=== PATIENT | female | born 1965 | race Caucasian/White ===

== ENCOUNTER → 2016-11-27 | Outpatient (CLI) | payer BC ==
[2016-11-27 15:36] LABS: CHLORIDE,CL 115 mmol/L (98-110); SODIUM,NA 146 mmol/L (136-146)
== END | disposition home or self-care (01) ==
LOC: MW.CHIM 15:01
PROVIDERS: ATTEND Internal Medicine
DX: I10 Essential (primary) hypertension (principal)
CPT/HCPCS: 36415; 80053; 85025

== ENCOUNTER 2017-02-16 06:37 | Day surgery (SDC) | payer BC ==
[~2017-02-16 06:37] MED LIST: Lactated Ringers 1,000 ML IV SCH
[2017-02-16] MEDS ORDERED: Propofol 200 MG/20 ML SDV ONE (07:14)
[2017-02-16] MEDS ORDERED: Midazolam 1 MG/ML 2 ML SDV ONE (07:14)
--- NOTE | 2017-02-16 07:15 | PCM.PREANE ---
Preanesthetic Assessment - Anesthesia/Transfusion/Family Hx Anesthesia History: Prior Anesthesia Without Reaction Family History of Anesthesia Reaction: No Transfusion History: Prior Transfusion Without Reaction Intubation History: Unknown - Review of Systems General: No Symptoms Pulmonary: No Symptoms Cardiovascular: No Symptoms Gastrointestinal: No Symptoms, Other (cancer screening) Neurological: No Symptoms Other: Reports: None - Physical Assessment O2 Sat by Pulse Oximetry: 100 Respiratory Rate: 16 Vital Signs: Last Vital Signs Temp 36.2 C 02/16/17 06:45 Pulse 56 L 02/16/17 06:45 Resp 16 02/16/17 06:45 BP 139/84 02/16/17 06:45 Pulse Ox 100 02/16/17 06:45 Height: 1.63 m Weight: 49.895 kg ASA Class: 2 Mental Status: Alert & Oriented x3 Airway Class: Mallampati = 1 Dentition: Reports: Normal Dentition Thyro-Mental Finger Breadths: 3 Mouth Opening Finger Breadths: 3 ROM/Head Extension: Full Lungs: Clear to Auscultation, Normal Respiratory Effort Cardiovascular: Regular Rate, Regular Rhythm - Allergies Allergies/Adverse Reactions: Allergies Allergy/AdvReac Type Severity Reaction Status Date / Time No Known Allergies Allergy Verified 01/12/16 14:16 - Blood Blood Available: No - Anesthesia Plan Pre-Op Medication Ordered: None - Acknowledgements Anesthesia Type Planned: MAC Pt an Appropriate Candidate for the Planned Anesthesia: Yes Alternatives and Risks of Anesthesia Discussed w Pt/Guardian: Yes Pt/Guardian Understands and Agrees with Anesthesia Plan: Yes PreAnesthesia Questionnaire HEENT History: Reports: None Cardiovascular History: Reports: Hypertension Respiratory History: Reports: None Gastrointestinal History: Reports: None Genitourinary History: Reports: None COMPUTER OPERATIONS SPECIALIST History: Reports: None Musculoskeletal History: Reports: None Neurological History: Reports: None Psychiatric History: Reports: None Endocrine/Metabolic History: Reports: None Hematologic History: Reports: Blood Transfusion(s) Immunologic History: Reports: None Oncologic (Cancer) History: Reports: None Dermatologic History: Reports: None - Past Surgical History Head Surgeries/Procedures: Reports: None HEENT Surgical History: Reports: None Cardiovascular Surgical History: Reports: None Respiratory Surgical History: Reports: None GI Surgical History: Reports: Bariatric Procedure (x2 (in [place])), Hernia Repair/Other Other GI Surgeries/Procedures: 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 Female Surgical History: Reports: Hysterectomy Endocrine Surgical History: Reports: None Neurological Surgical History: Reports: None Musculoskeletal Surgical History: Reports: None Oncologic Surgical History: Reports: None - SUBSTANCE USE Smoking Status *Q: Never Smoker Recreational Drug Use History: No - HOME MEDS Home Medications: Home Meds Valsartan 320 mg PO DAILY 02/15/17 [History] amLODIPine [Norvasc] 5 mg PO DAILY 02/15/17 [History] cloNIDine HCl [Catapres] 0.1 mg PO BID 02/15/17 [History] - CURRENT (IN HOUSE) MEDS Current Meds: Current Medications Lactated Ringer's (Ringers, Lactated) 1,000 mls @ 125 mls/hr IV ASDIRECTED [facility] Last Admin: 02/16/17 06:51 Dose: 125 mls/hr
[2017-02-16] MEDS ORDERED: Lactated Ringers 1,000 ML IV SCH (08:30)
--- NOTE | 2017-02-16 08:30 | PCM.OPNOTE ---
- General Post-Op/Procedure Note Date of Surgery/Procedure: 02/16/17 Operative Procedure(s): Colonoscopy with snare ascending colon polypectomy and snare descending colon polypectomy Pre Op Diagnosis: Desire for colorectal cancer screening Post-Op Diagnosis: Ascending and descending colon polyps. Pancolonic diverticulosis. Anesthesia Technique: MAC (ASA II) Primary Surgeon: Amado Lopez Condition: Good Free Text/Narrative:: Dictation [id number]. CPT CODE 80401
--- NOTE | 2017-02-16 08:44 | PCM.POSTAN ---
POST ANESTHESIA ASSESSMENT - MENTAL STATUS Mental Status: Alert, Oriented - RESPIRATORY Respiratory Status: respiratory rate WNL, Airway Patent, O2 Saturation Stable - CARDIOVASCULAR CV Status: Pulse Rate WNL, Blood Pressure Stable - GASTROINTESTINAL GI Status: No Symptoms - PAIN Pain Score: 0 - POST OP HYDRATION Hydration Status: Adequate & Stable (no anesthesia problems)
[2017-02-16 09:00] VITALS: BP 112/64
--- NOTE | 2017-02-16 10:00 | OR ---
SURGEON: Amado Lopez M.D. DATE OF PROCEDURE: 02/16/2017 OPERATION PERFORMED: Colonoscopy with snare ascending colon and snare descending colon, polypectomy. ANESTHESIA: MAC. ASA CLASSIFICATION: II. PREOPERATIVE DIAGNOSIS: Desire for colorectal cancer screening. POSTOPERATIVE DIAGNOSES: 1. Ascending and descending colon polyps. 2. Pancolonic diverticulosis. DESCRIPTION OF PROCEDURE: The patient was taken to the endoscopy room and positioned on the endoscopy table in the left lateral decubitus position. Time-out was called for appropriate identification of the patient and procedure. Monitored anesthesia care was provided. The colonoscope was inserted into the rectum and advanced without difficulty to the cecum. The colonoscope was retroflexed in the cecum to visualize the ascending colon from below, then straightened and slowly withdrawn. One polyp was encountered in the ascending colon and this was removed with the snare electrocautery and recovered. The remainder of the ascending colon, hepatic flexure, transverse colon, splenic flexure, and proximal descending colon showed no tumors, polyps, or angiodysplastic changes. Multiple small scattered diverticula were noted throughout the entire length of the colon. A second polyp was encountered in the descending colon and also removed with a snare electrocautery and recovered. Both polypectomy sites were dry. The most significant area of diverticular involvement is in the sigmoid colon. Once the colonoscope was withdrawn to the rectum, it was retroflexed to visualize the anal orifice from above. No other tumors or polyps were identified and there were no acute hemorrhoidal changes. The colonoscope was then straightened, the rectum aspirated, and the colonoscope removed. The patient tolerated the procedure well and was taken to recovery room in stable condition. GAYATRI SALAS /[id number]
== END 2017-02-16 09:04 | disposition home or self-care (01) ==
LOC: MW.SDS 06:37
PROVIDERS: ATTEND Surgery
PROC: 0DBK8ZZ Excision of Ascending Colon, Via Natural or Artificial Opening Endoscopic (ICD-10-PCS; principal; 2017-02-16)
PROC: 0DBM8ZZ Excision of Descending Colon, Via Natural or Artificial Opening Endoscopic (ICD-10-PCS; 2017-02-16)
DX: Z12.11 Encounter for screening for malignant neoplasm of colon (principal); D12.2 Benign neoplasm of ascending colon; D12.4 Benign neoplasm of descending colon; K57.30 Diverticulosis of large intestine without perforation or abscess without bleeding; I10 Essential (primary) hypertension; Z79.899 Other long term (current) drug therapy; Z90.710 Acquired absence of both cervix and uterus; Z98.84 Bariatric surgery status; Z98.890 Other specified postprocedural states; Z77.22 Contact with and (suspected) exposure to environmental tobacco smoke (acute) (chronic)
CPT/HCPCS: 45385; J2250; J7120; 00810; 88305; J2704

== ENCOUNTER 2017-04-29 12:25 | Emergency (ER) | payer BC ==
[2017-04-29 12:37] VITALS: BP 128/82
--- NOTE | 2017-04-29 12:46 | EDM.PDOC ---
ED HPI GENERAL MEDICAL PROBLEM - General Chief Complaint: Bite:Animal, Insect Stated Complaint: cat scratch fever Time Seen by Provider: 04/29/17 12:42 Source of Information: Reports: Patient History Limitations: Reports: No Limitations - History of Present Illness INITIAL COMMENTS - FREE TEXT/NARRATIVE: HISTORY AND PHYSICAL: []51-year-old female presents with cellulitis to her left leg History of Present Illness: []Patient was scratched by her cat and has no cellulitis to the left lower leg. SHe is feeling some chills Review of Systems: As per history of present illness and below otherwise all systems reviewed and negative. Past medical history: As per history of present illness and as reviewed below otherwise noncontributory. Surgical history: As per history of present illness and as reviewed below otherwise noncontributory. Social history: No reported history of drug or alcohol abuse. Family history: As per history of present illness and as reviewed below otherwise noncontributory. Physical exam: Alert and oriented female who is nontoxic in appearance. Answers questions in full with full sentences no shortness of breath. It is warm and dry intact HEENT: Atraumatic, normocehpalic, pupils reactive, negative for conjunctival pallor or scleral icterus, mucous membranes moist, throat clear, neck supple, nontender, trachea midline. Lungs: Clear to auscultation, breath sounds equal bilaterally, chest non tender. Heart: S1S2, regular, negative for clicks, rubs, or JVD. Abdomen: Soft, nondistended, nontender. Negative for masses or hepatossplenmegaly. Negative for costovertebral tenderness. Pelvis: Stable nontender. Genitourinary: Deferred. Rectal: Deferred Extremities: Left lower leg with a scratch mid calf. It is erythematous, but there is a well-demarcated line just below her knee to the top of her foot with erythema, mild heat radiating, negative for cords or calf pain. Neurovascular unremarkable. Neuro: Awake, alert, oriented. Cranial nerves II through XII unremarkable. Cerebellum unremarkable. Motor and sensory unremarkable throughout. Exam nonfocal. Diagnostics: [] Therapeutics: [] Impression: [Acute cellulitis] Plan: [Discharged to home [facility] for augmentin Follow-up with your primary care provider] Definitive disposition and diagnosis as appropriate pending reevaluation and review of above. Left Lower Leg Pain Score (Numeric/FACES): 7 - Related Data Allergies Allergy/AdvReac Type Severity Reaction Status Date / Time No Known Allergies Allergy Verified 04/29/17 12:35 Home Meds: Home Meds Valsartan 320 mg PO DAILY 02/15/17 [History] amLODIPine [Norvasc] 5 mg PO DAILY 02/15/17 [History] cloNIDine HCl [Catapres] 0.1 mg PO BID 02/15/17 [History] Past Medical History HEENT History: Reports: None Cardiovascular History: Reports: Hypertension Respiratory History: Reports: None Gastrointestinal History: Reports: None Genitourinary History: Reports: None CUSTOMER SERVICE ASSOCIATE History: Reports: None Musculoskeletal History: Reports: None Neurological History: Reports: None Psychiatric History: Reports: None Endocrine/Metabolic History: Reports: None Hematologic History: Reports: Blood Transfusion(s) Immunologic History: Reports: None Oncologic (Cancer) History: Reports: None Dermatologic History: Reports: None - Past Surgical History Head Surgeries/Procedures: Reports: None HEENT Surgical History: Reports: None Cardiovascular Surgical History: Reports: None Respiratory Surgical History: Reports: None GI Surgical History: Reports: Bariatric Procedure, Hernia Repair/Other Other GI Surgeries/Procedures: 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 Female Surgical History: Reports: Hysterectomy Endocrine Surgical History: Reports: None Neurological Surgical History: Reports: None Musculoskeletal Surgical History: Reports: None Oncologic Surgical History: Reports: None Social & Family History - Family History Family Medical History: Noncontributory - Tobacco Use Smoking Status *Q: Never Smoker - Caffeine Use Caffeine Use: Reports: None - Recreational Drug Use Recreational Drug Use: No Drug Use in Last 12 Months: No ED ROS GENERAL - Review of Systems Review Of Systems: ROS reveals no pertinent complaints other than HPI. ED EXAM, ANIMAL BITE - Physical Exam Exam: See Below Course - Vital Signs Last Recorded V/S: Last Vital Signs Temp 36.9 C 04/29/17 12:32 Pulse 114 H 04/29/17 12:32 Resp 18 04/29/17 12:32 BP 128/82 04/29/17 12:32 Pulse Ox 97 04/29/17 12:32 Departure - Departure Time of Disposition: 12:44 Disposition: Home, Self-Care 01 Condition: Good Clinical Impression: Cellulitis Qualifiers: Site of cellulitis: extremity Site of cellulitis of extremity: lower extremity Laterality: left Qualified Code(s): L03.116 - Cellulitis of left lower limb - Discharge Information Referrals: Cali Patel MD [Primary Care Provider] - Additional Instructions: The following information is given to patients seen in the emergency department who are being discharged to home. This information is to outline your options for follow-up care. We provide all patients seen in our emergency department with a follow-up referral. The need for follow-up, as well as the timing and circumstances, are variable depending upon the specifics of your emergency department visit. If you don't have a primary care physician on staff, we will provide you with a referral. We always advise you to contact your personal physician following an emergency department visit to inform them of the circumstance of the visit and for follow-up with them and/or the need for any referrals to a consulting specialist. The emergency department will also refer you to a specialist when appropriate. This referral assures that you have the opportunity for followup care with a specialist. All of these measure are taken in an effort to provide you with optimal care, which includes your followup. Under all circumstances we always encourage you to contact your private physician who remains a resource for coordinating your care. When calling for followup care, please make the office aware that this follow-up is from your recent emergency room visit. If for any reason you are refused follow-up, please contact the [facility] emergency department at and asked to speak to the emergency department charge nurse. [facility] for antibiotic Tylenol alternating with Motrin every 3 hours for discomfort Follow-up with your primary care provider this week
== END 2017-04-29 13:20 | disposition home or self-care (01) ==
LOC: MW.ED 12:25
DX: L03.116 Cellulitis of left lower limb (principal); Z79.899 Other long term (current) drug therapy
CPT/HCPCS: 99282

== ENCOUNTER 2019-07-21 15:16 | Inpatient (IN) | payer BC ==
--- NOTE | 2019-07-21 16:04 | EDM.PDOC ---
ED HPI GENERAL MEDICAL PROBLEM - General Chief Complaint: Genitourinary Problem Stated Complaint: UTI Time Seen by Provider: 07/21/19 15:17 - History of Present Illness INITIAL COMMENTS - FREE TEXT/NARRATIVE: HPI 53-year-old female presents with dysuria and urinary frequency, denies flank pain, fevers, chills, nausea, vomiting, continues pass flatus and stool at baseline. No history of ureterolithiasis. ROS with no recent constitutional symptoms. Exam HR 96, RR 16, BP 157/78, T 36.7C, SaO2 98% on room air. Gen: Pleasant, non-toxic appearing, resting comfortably HEENT: NC, AT, PEERL, EOMI. Resp: Clear to auscultation bilaterally. Unlabored respirations with a normal work of breathing. Card: Regular rate and rhythm. Extremities warm and well perfused. GI: nontender to palpation throughout all quadrants, no rebound, guarding. : no CVA tenderness percussion bilaterally, no suprapubic tenderness to palpation. MSK: No visible deformities, strength and tone without visually appreciable deficit. Neuro: alert and oriented 3, no facial asymmetry, vision and hearing WNL. Heme/Lymph: Deferred Skin: Normal color with no visible lesions (other than noted above). Psych: Mood and affect appropriate. Labs: UA - trace occult blood, negative nitrate, small leukocyte esterase, rare bacteria, occasional epithelial cells, negative hCG. MDM Previous chart, nursing note, and vitals reviewed. A: 53-year-old female presents with dysuria and urinary frequency, denies flank pain, fevers, chills, nausea, vomiting, continues pass flatus and stool at baseline. DDx & Evaluation: UA and history consistent with UTI, no features suggestive of ureterolithiasis, pyelonephritis, or complicated UTI. Keflex prescribed. Impression: UTI. Urination Pain Score (Numeric/FACES): 3 - Related Data Allergies Allergy/AdvReac Type Severity Reaction Status Date / Time No Known Allergies Allergy Verified 07/21/19 15:22 Home Meds: Home Meds Valsartan 320 mg PO DAILY 02/15/17 [History] amLODIPine [Norvasc] 5 mg PO DAILY 02/15/17 [History] cloNIDine HCl [Catapres] 0.1 mg PO BID 02/15/17 [History] cephALEXin [Keflex] 500 mg PO BID #20 cap 07/21/19 [Rx] Past Medical History HEENT History: Reports: None Cardiovascular History: Reports: Hypertension Respiratory History: Reports: None Gastrointestinal History: Reports: None Genitourinary History: Reports: None PROCEDURES NURSE History: Reports: None Musculoskeletal History: Reports: None Neurological History: Reports: None Psychiatric History: Reports: None Endocrine/Metabolic History: Reports: None Hematologic History: Reports: Blood Transfusion(s) Immunologic History: Reports: None Oncologic (Cancer) History: Reports: None Dermatologic History: Reports: None - Infectious Disease History Infectious Disease History: Reports: Chicken Pox - Past Surgical History Head Surgeries/Procedures: Reports: None HEENT Surgical History: Reports: None Cardiovascular Surgical History: Reports: None Respiratory Surgical History: Reports: None GI Surgical History: Reports: Bariatric Procedure, Hernia Repair/Other Other GI Surgeries/Procedures: 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 Female Surgical History: Reports: Hysterectomy Endocrine Surgical History: Reports: None Neurological Surgical History: Reports: None Musculoskeletal Surgical History: Reports: None Oncologic Surgical History: Reports: None Social & Family History - Family History Family Medical History: Noncontributory - Tobacco Use Smoking Status *Q: Never Smoker Second Hand Smoke Exposure: No - Caffeine Use Caffeine Use: Reports: Coffee - Recreational Drug Use Recreational Drug Use: No ED ROS GENERAL - Review of Systems Review Of Systems: See Below ED EXAM, GENERAL - Physical Exam Exam: See Below Course - Vital Signs Last Recorded V/S: Last Vital Signs Temp 36.7 C 07/21/19 15:22 Pulse 96 07/21/19 15:22 Resp 16 07/21/19 15:22 BP 157/78 H 07/21/19 15:22 Pulse Ox 98 07/21/19 15:22 - Orders/Labs/Meds Orders: Active Orders 24 hr Category Date Time Status CULTURE URINE [RM] Stat Lab 07/21/19 15:26 Received Labs: Laboratory Tests 07/21/19 07/21/19 Range/Units 15:26 15:26 Urine Color YELLOW Urine Appearance SLT CLOUDY Urine pH 6.0 (5.0-8.0) Ur Specific [place] 1.020 (1.001-1.035) Urine Protein TRACE H (NEGATIVE) mg/dL Urine Glucose (UA) NEGATIVE (NEGATIVE) mg/dL Urine Ketones NEGATIVE (NEGATIVE) mg/dL Urine Occult Blood TRACE-INTACT H (NEGATIVE) Urine Nitrite NEGATIVE (NEGATIVE) Urine Bilirubin NEGATIVE (NEGATIVE) Urine Urobilinogen 0.2 (<2.0) EU/dL Ur Leukocyte Esterase SMALL H (NEGATIVE) Urine RBC 1-2 (0-2/HPF) Urine WBC 15-20 (0-5/HPF) Ur Epithelial Cells OCCASIONAL (NONE-FEW) Urine Bacteria RARE (NEGATIVE) Urinalysis Comment Urine HCG, Qual NEGATIVE (NEGATIVE) Departure - Departure Time of Disposition: 16:03 Disposition: Home, Self-Care 01 Clinical Impression: UTI, Urinary tract infectious disease - Discharge Information Prescriptions: cephALEXin [Keflex] 500 mg PO BID #20 cap Referrals: Cali Patel MD [Primary Care Provider] - Sepsis Event Note - Evaluation Sepsis Screening Result: No Definite Risk - Focused Exam Vital Signs: Vital Signs Temp Pulse Resp BP Pulse Ox 07/21/19 15:22 36.7 C 96 16 157/78 H 98 Date Exam was Performed: 07/21/19 Time Exam was Performed: 16:03
[2019-07-21] MEDS ORDERED: Ketorolac 30 MG/ML SDV IVPUSH ONE (16:26)
[2019-07-21] MEDS ORDERED: Sodium Chloride 0.9% 1,000 ML IV ONE ×3 (16:26→19:50)
[2019-07-21] MEDS ORDERED: Magnesium Sulfate/Water 2 GM in Premix Bag 1 BAG IV ONE (16:52)
[2019-07-21 17:12] LABS: CARBON DIOXIDE,CO2 22.1 mmol/L (21.0-32.0); POTASSIUM,K 3.5 mmol/L (3.5-5.1)
--- NOTE | 2019-07-21 17:24 | CR ---
Indication: Cough. Fever. UTI. Technique: PA and lateral views of the chest. Comparison: None Findings: The heart is normal in size. The lungs are clear. No infiltrate, pleural effusion, or pneumothorax is identified. Impression: No acute cardiopulmonary process. Dictated by Julia Kerr MD @ Jul 21 2019 5:22PM Signed by Dr. Julia Kerr @ Jul 21 2019 5:23PM
[2019-07-21] MEDS ORDERED: cefTRIAXone 1 GM in Premix Bag 1 BAG IV ONE (17:51)
[2019-07-21] MEDS ORDERED: Acetaminophen 500 MG Tab PO ONE (19:51)
--- NOTE | 2019-07-21 20:02 | PCM.HP.2 ---
H&P History of Present Illness - General Date of Service: 07/21/19 Admit Problem/Dx: Admission Diagnosis/Problem Admission Diagnosis/Problem Sepsis - History of Present Illness Initial Comments - Free Text/Narative: 53 yo female with pmh of hypertension who presents with two day history of urinary tract symptoms of frequency and dysuria. Today she started to feel chills. She was seen in the ED and diagnosed with UTI based on UA. When she was about to be discharged her heart rate went to 150 bpm in SVT possible 2:1 flutter she. Was then bolused two L NS and given Rocephin. She then developed a fever. Urination Pain Score (Numeric/FACES): 3 - Related Data Allergies/Adverse Reactions: Allergies Allergy/AdvReac Type Severity Reaction Status Date / Time No Known Allergies Allergy Verified 07/21/19 15:22 Home Medications: Home Meds Valsartan 320 mg PO DAILY 02/15/17 [History] amLODIPine [Norvasc] 5 mg PO DAILY 02/15/17 [History] cloNIDine HCl [Catapres] 0.1 mg PO BID 02/15/17 [History] cephALEXin [Keflex] 500 mg PO BID #20 cap 07/21/19 [Rx] Past Medical History HEENT History: Reports: None Cardiovascular History: Reports: Hypertension Respiratory History: Reports: None Gastrointestinal History: Reports: None Genitourinary History: Reports: None CLINICAL BIOCHEMICAL GENETICIST History: Reports: None Musculoskeletal History: Reports: None Neurological History: Reports: None Psychiatric History: Reports: None Endocrine/Metabolic History: Reports: None Hematologic History: Reports: Blood Transfusion(s) Immunologic History: Reports: None Oncologic (Cancer) History: Reports: None Dermatologic History: Reports: None - Infectious Disease History Infectious Disease History: Reports: Chicken Pox - Past Surgical History Head Surgeries/Procedures: Reports: None HEENT Surgical History: Reports: None Cardiovascular Surgical History: Reports: None Respiratory Surgical History: Reports: None GI Surgical History: Reports: Bariatric Procedure, Hernia Repair/Other Other GI Surgeries/Procedures: 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 Female Surgical History: Reports: Hysterectomy Endocrine Surgical History: Reports: None Neurological Surgical History: Reports: None Musculoskeletal Surgical History: Reports: None Oncologic Surgical History: Reports: None Social & Family History - Family History Family Medical History: Noncontributory - Tobacco Use Smoking Status *Q: Never Smoker Second Hand Smoke Exposure: No - Caffeine Use Caffeine Use: Reports: Coffee - Recreational Drug Use Recreational Drug Use: No H&P Review of Systems - Review of Systems: Review Of Systems: Comprehensive ROS is negative, except as noted in HPI. Exam - Exam Exam: See Below - Vital Signs Vital Signs: Last Vital Signs Temp 37.7 C 07/21/19 16:26 Pulse 117 H 07/21/19 18:15 Resp 18 07/21/19 18:15 BP 124/76 07/21/19 18:15 Pulse Ox 97 07/21/19 18:15 Weight: 58.967 kg - Exam General: Alert, Oriented HEENT: Mucosa Moist & [place] Lungs: Clear to Auscultation, Normal Respiratory Effort Cardiovascular: Regular Rate, Regular Rhythm GI/Abdominal Exam: Normal Bowel Sounds, Soft, Non-Tender Back Exam: CVA Tenderness (R) Extremities: Non-Tender, No Pedal Edema Skin: Warm, Dry, Intact Neurological: Cranial Nerves Intact, Reflexes Equal Bilateral - Patient Data Lab Results Last 24 hrs: Laboratory Results - last 24 hr 07/21/19 07/21/19 07/21/19 Range/Units 15:26 15:26 16:43 WBC 2.80 L (4.0-11.0) K/uL RBC 4.70 (4.30-5.90) M/uL Hgb 14.4 (12.0-16.0) g/dL Hct 42.6 (36.0-46.0) % MCV 90.6 (80.0-98.0) fL MCH 30.6 (27.0-32.0) pg MCHC 33.8 (31.0-37.0) g/dL RDW Std Deviation 43.7 (28.0-62.0) fl RDW Coeff of Arelis 13 (11.0-15.0) % Plt Count 118 L (150-400) K/uL MPV 8.60 (7.40-12.00) fL Neut % (Auto) 89.2 H (48.0-80.0) % Lymph % (Auto) 9.3 L (16.0-40.0) % Cotton % (Auto) 0.7 (0.0-15.0) % Eos % (Auto) 0.4 (0.0-7.0) % Baso % (Auto) 0.4 (0.0-1.5) % Neut # (Auto) 2.5 (1.4-5.7) K/uL Lymph # (Auto) 0.3 L (0.6-2.4) K/uL Cotton # (Auto) 0.0 (0.0-0.8) K/uL Eos # (Auto) 0.0 (0.0-0.7) K/uL Baso # (Auto) 0.0 (0.0-0.1) K/uL Nucleated RBC % 0.0 /100WBC Nucleated RBCs # 0 K/uL Lactate (0.20-2.00) mmol/L Sodium (136-145) mmol/L Potassium (3.5-5.1) mmol/L Chloride (98-107) mmol/L Carbon Dioxide (21.0-32.0) mmol/L BUN (7.0-18.0) mg/dL Creatinine (0.6-1.0) mg/dL Est Cr Clr Drug Dosing mL/min Estimated GFR (MDRD) ml/min Glucose (74-106) mg/dL Calcium (8.5-10.1) mg/dL TSH 3rd Generation (0.36-3.74) uIU/mL Urine Color YELLOW Urine Appearance SLT CLOUDY Urine pH 6.0 (5.0-8.0) Ur Specific [place] 1.020 (1.001-1.035) Urine Protein TRACE H (NEGATIVE) mg/dL Urine Glucose (UA) NEGATIVE (NEGATIVE) mg/dL Urine Ketones NEGATIVE (NEGATIVE) mg/dL Urine Occult Blood TRACE-INTACT H (NEGATIVE) Urine Nitrite NEGATIVE (NEGATIVE) Urine Bilirubin NEGATIVE (NEGATIVE) Urine Urobilinogen 0.2 (<2.0) EU/dL Ur Leukocyte Esterase SMALL H (NEGATIVE) Urine RBC 1-2 (0-2/HPF) Urine WBC 15-20 (0-5/HPF) Ur Epithelial Cells OCCASIONAL (NONE-FEW) Urine Bacteria RARE (NEGATIVE) Urinalysis Comment Urine HCG, Qual NEGATIVE (NEGATIVE) 07/21/19 07/21/19 07/21/19 Range/Units 16:43 16:43 16:43 WBC (4.0-11.0) K/uL RBC (4.30-5.90) M/uL Hgb (12.0-16.0) g/dL Hct (36.0-46.0) % MCV (80.0-98.0) fL MCH (27.0-32.0) pg MCHC (31.0-37.0) g/dL RDW Std Deviation (28.0-62.0) fl RDW Coeff of Arelis (11.0-15.0) % Plt Count (150-400) K/uL MPV (7.40-12.00) fL Neut % (Auto) (48.0-80.0) % Lymph % (Auto) (16.0-40.0) % Cotton % (Auto) (0.0-15.0) % Eos % (Auto) (0.0-7.0) % Baso % (Auto) (0.0-1.5) % Neut # (Auto) (1.4-5.7) K/uL Lymph # (Auto) (0.6-2.4) K/uL Cotton # (Auto) (0.0-0.8) K/uL Eos # (Auto) (0.0-0.7) K/uL Baso # (Auto) (0.0-0.1) K/uL Nucleated RBC % /100WBC Nucleated RBCs # K/uL Lactate 2.9 H* (0.20-2.00) mmol/L Sodium 139 (136-145) mmol/L Potassium 3.5 (3.5-5.1) mmol/L Chloride 103 (98-107) mmol/L Carbon Dioxide 22.1 (21.0-32.0) mmol/L BUN 18 (7.0-18.0) mg/dL Creatinine 1.0 (0.6-1.0) mg/dL Est Cr Clr Drug Dosing 56.83 mL/min Estimated GFR (MDRD) 58.2 ml/min Glucose 105 (74-106) mg/dL Calcium 8.5 (8.5-10.1) mg/dL TSH 3rd Generation 1.87 (0.36-3.74) uIU/mL Urine Color Urine Appearance Urine pH (5.0-8.0) Ur Specific [place] (1.001-1.035) Urine Protein (NEGATIVE) mg/dL Urine Glucose (UA) (NEGATIVE) mg/dL Urine Ketones (NEGATIVE) mg/dL Urine Occult Blood (NEGATIVE) Urine Nitrite (NEGATIVE) Urine Bilirubin (NEGATIVE) Urine Urobilinogen (<2.0) EU/dL Ur Leukocyte Esterase (NEGATIVE) Urine RBC (0-2/HPF) Urine WBC (0-5/HPF) Ur Epithelial Cells (NONE-FEW) Urine Bacteria (NEGATIVE) Urinalysis Comment Urine HCG, Qual (NEGATIVE) Result Diagrams: 07/21/19 16:43 07/21/19 16:43 Bharat Results Last 24 hrs: Microbiology 07/21/19 16:44 Influenza Type A Antigen Screen - Final Nasopharyngeal Swab NEGATIVE INFLUENZA A VIRUS AG REFERENCE RANGE: NEGATIVE Influenza Type B Antigen Screen - Final NEGATIVE INFLUENZA B VIRUS AG REFERENCE RANGE: NEGATIVE Sepsis Event Note - Evaluation Sepsis Screening Result: No Definite Risk Current Stage of Sepsis: Sepsis Possible Source of Sepsis: Genitourinary - Focused Exam Vital Signs: Vital Signs Temp Pulse Resp BP Pulse Ox 07/21/19 18:15 117 H 18 124/76 97 07/21/19 18:00 118 H 18 132/75 96 07/21/19 17:45 118 H 18 138/80 97 07/21/19 17:30 120 H 18 135/82 95 07/21/19 17:19 120 H 18 144/82 H 95 07/21/19 16:26 37.7 C 144 H 18 169/99 H 96 07/21/19 15:22 36.7 C 96 16 157/78 H 98 Capillary Refill, Detail: Less than/Equal to (</=) 2 Seconds Pulse Description: 2+ Normal Skin Exam (Focused Sepsis): Normal [place], [place], Unremarkable Date Exam was Performed: 07/21/19 Time Exam was Performed: 20:10 Problem List Initiated/Reviewed/Updated: Yes Orders Last 24hrs: Active Orders 24 hr Category Date Time Status Patient Status [ADT] Stat ADT 07/21/19 18:54 Active EKG 12 Lead [EKG Documentation Completion] [RC] STAT Care 07/21/19 16:34 Active EKG 12 Lead [EKG Documentation Completion] [RC] STAT Care 07/21/19 17:25 Active Abdomen Pelvis wo Cont [CT] Stat Exams 07/21/19 19:54 Ordered CULTURE URINE [RM] Stat Lab 07/21/19 15:26 Received Meropenem [Merrem] 1 gm Med 07/21/19 20:00 Ordered Sodium Chloride 0.9% [Normal Saline] 100 ml IV Q8H Pharmacy to Dose - Vancomycin Med 07/21/19 20:00 Ordered 1 dose .XX ASDIRECTED Sodium Chloride 0.9% [Normal Saline] 1,000 ml Med 07/21/19 19:50 Active IV .Bolus Medication Orders Sodium Chloride (Normal Saline) 1,000 mls @ 999 mls/hr IV .Bolus ONE Stop: 07/21/19 20:50 Last Admin: 07/21/19 19:55 Dose: 999 mls/hr Meropenem 1 gm/ Sodium (Chloride) 100 mls @ 200 mls/hr IV Q8H [facility] Vancomycin HCl (Pharmacy To Dose - Vancomycin) 1 dose .XX ASDIRECTED [facility] Assessment/Plan Comment:: 53 yo female admitted for sepsis from UTI. We will treat with Vancomycin and meropenem. Will continue adequate fluid rescucitation. Will monitor closely in the ICU tonight. Cultures pending. CT abdomen and pelvis ordered.
[2019-07-21] MEDS: Meropenem 1 GM in Sodium Chloride 0.9% 100 ML IV SCH (20:34)
--- NOTE | 2019-07-21 21:16 | CT ---
INDICATION: Abdominal pain with fever. COMPARISON: COMPARISON DATE TECHNIQUE: CT examination of the abdomen and pelvis was performed without contrast enhancement using 3 mm thick axial sections from the lung bases through the pubic symphysis. Oral contrast was not administered. Please note that all CT scans at this facility use dose modulation, iterative reconstruction, and/or weight-based dosing when appropriate to reduce radiation dose to as low as reasonably achievable. FINDINGS: There is mild right hydronephrosis and right hydroureter produced by a 3 millimeter calculus located at the right UVJ. There is no sign of any additional right-sided renal or ureteral calculi. The left kidney is normal in appearance with no sign of calculus, mass, or hydronephrosis. There is no sign of left ureteral calculus or dilatation. In the abdomen, the unenhanced liver, spleen, pancreas, and adrenals are normal in appearance. The unenhanced kidneys are normal in appearance. There is high-density material in the dependent portion of the gallbladder consistent with innumerable small calculi versus sludge. The gallbladder is otherwise normal in appearance. The abdominal aorta is normal in caliber with no sign of dilatation. There is no sign of retroperitoneal mass or adenopathy. There is a line of surgical priscilla along the gastric fundus consistent with gastric bypass surgery. A small bowel anastomosis is seen in the left upper quadrant. The distal stomach, rest of the loops of small bowel, and colon in the abdomen are normal in appearance. In the pelvis, the appendix is normal in appearance with no sign of inflammatory process. The loops of small bowel and colon in the pelvis are normal in appearance. The uterus is absent and the adnexal regions are normal in appearance. The urinary bladder is normal in appearance. There is no sign of pelvic or inguinal mass or adenopathy. No signs of any free fluid or free air in the abdomen or pelvis. The lung bases are clear. The osseous structures are normal in appearance for the patient`s age. IMPRESSION: Mild right hydronephrosis and right hydroureter produced by a 3 millimeter right UVJ calculus. CT of the abdomen shows no sign of any additional renal or ureteral calculi. Cholelithiasis with numerous small calculi in the dependent portion of the gallbladder versus sludge. Status post gastric bypass surgery. CT of the pelvis shows changes of hysterectomy. Please note that all CT scans at this facility use dose modulation, iterative reconstruction, and/or weight-based dosing when appropriate to reduce radiation dose to as low as reasonably achievable. Dictated by Geraldo Nayak MD @ Jul 21 2019 9:06PM Signed by Dr. Geraldo Nayak @ Jul 21 2019 9:13PM
[2019-07-21] MEDS: Sodium Chloride 0.9% 1,000 ML IV SCH (21:28)
[2019-07-21] MEDS: Heparin Sodium 5,000 Units/ML Vial SUBCUT SCH (21:29)
--- NOTE | 2019-07-21 21:59 | PN ---
THC Physician - Brief Progress [id number]/30/2019 21:55[facility] Wei Sandoval, RUDI [facility] - [facility] KAYCE NIDate of Service 07/21/2019 21:55HPI/Events of Note Case discused with hosppitalist. 53 year old F admitted with sepsis/UTI. Treated with fluids and abx.120s 118/69 93%Recs include: hemodynamic monitoring, supplemental O2 PRN, GI and DVT prop hylaxis, abx, follow cultures, trend LA, replace lytes as needed, trend Cr, glycemic monitoring, eze n control.Interventions Minor-Communication with other healthcare providers and/or familyElectronical ly Signed by: LEROY BRUNSON () on 07/21/2019 21:58
[2019-07-22 03:26] LABS: CARBON DIOXIDE,CO2 18.8 mmol/L (21.0-32.0); POTASSIUM,K 3.2 mmol/L (3.5-5.1)
[2019-07-22] MEDS ORDERED: Potassium Chloride Riders 40 MEQ in Premix Bag 1 BAG IV ONE (03:53)
[2019-07-22] MEDS: Heparin Sodium 5,000 Units/ML Vial SUBCUT SCH ×3 (04:02→20:28)
[2019-07-22] MEDS: Meropenem 1 GM in Sodium Chloride 0.9% 100 ML IV SCH (04:02)
[2019-07-22] MEDS: Sodium Chloride 0.9% 1,000 ML IV SCH (06:07)
[2019-07-22] MEDS ORDERED: Potassium Chloride 20 MEQ Tab.ER PO ONE (07:59)
--- NOTE | 2019-07-22 09:13 | PCM.PN ---
- General Info Date of Service: 07/22/19 Subjective Update: Bedside: pt. states feeling much better since last night; endorsing some mild discomfort in RLQ and and Right CVA but is tolerating po liquids/food. Denies any other discomfort at this time. Functional Status: Reports: Pain Controlled - Review of Systems General: Denies: Fever, Weakness, Fatigue, Malaise HEENT: Reports: No Symptoms Pulmonary: Reports: No Symptoms Cardiovascular: Denies: Chest Pain, Palpitations, Dyspnea on Exertion Gastrointestinal: Denies: Diarrhea, Nausea, Vomiting Genitourinary: Denies: Dysuria, Frequency, Burning, Pain Musculoskeletal: Reports: No Symptoms Neurological: Reports: No Symptoms. Denies: Confusion, Dizziness - Patient Data Vitals - Most Recent: Last Vital Signs Temp 98.2 F 07/22/19 04:00 Pulse 136 H 07/21/19 20:45 Resp 21 H 07/22/19 07:00 BP 96/68 07/22/19 07:00 Pulse Ox 94 L 07/22/19 07:00 Weight - Most Recent: 136 lb 3.931 oz I&O - Last 24 Hours: Intake & Output 07/21/19 07/22/19 07/22/19 22:59 06:59 14:59 Intake Total 3500 Balance 3500 Lab Results Last 24 Hours: Laboratory Results - last 24 hr 07/21/19 07/21/19 07/21/19 Range/Units 15:26 15:26 16:43 WBC 2.80 L (4.0-11.0) K/uL RBC 4.70 (4.30-5.90) M/uL Hgb 14.4 (12.0-16.0) g/dL Hct 42.6 (36.0-46.0) % MCV 90.6 (80.0-98.0) fL MCH 30.6 (27.0-32.0) pg MCHC 33.8 (31.0-37.0) g/dL RDW Std Deviation 43.7 (28.0-62.0) fl RDW Coeff of Arelis 13 (11.0-15.0) % Plt Count 118 L (150-400) K/uL MPV 8.60 (7.40-12.00) fL Neut % (Auto) 89.2 H (48.0-80.0) % Lymph % (Auto) 9.3 L (16.0-40.0) % [place] % (Auto) 0.7 (0.0-15.0) % Eos % (Auto) 0.4 (0.0-7.0) % Baso % (Auto) 0.4 (0.0-1.5) % Neut # (Auto) 2.5 (1.4-5.7) K/uL Lymph # (Auto) 0.3 L (0.6-2.4) K/uL [place] # (Auto) 0.0 (0.0-0.8) K/uL Eos # (Auto) 0.0 (0.0-0.7) K/uL Baso # (Auto) 0.0 (0.0-0.1) K/uL Add Manual Diff Neutrophils % (Manual) (48.0-80.0) % Band Neutrophils % % Lymphocytes % (Manual) (16.0-40.0) % Nucleated RBC % 0.0 /100WBC Absolute Seg Neuts (1.4-5.7) Band Neutrophils # Lymphocytes # (Manual) (0.6-2.4) Nucleated RBCs # 0 K/uL Lactate (0.20-2.00) mmol/L Sodium (136-145) mmol/L Potassium (3.5-5.1) mmol/L Chloride (98-107) mmol/L Carbon Dioxide (21.0-32.0) mmol/L BUN (7.0-18.0) mg/dL Creatinine (0.6-1.0) mg/dL Est Cr Clr Drug Dosing mL/min Estimated GFR (MDRD) ml/min Glucose (74-106) mg/dL Calcium (8.5-10.1) mg/dL TSH 3rd Generation (0.36-3.74) uIU/mL Urine Color YELLOW Urine Appearance SLT CLOUDY Urine pH 6.0 (5.0-8.0) Ur Specific [place] 1.020 (1.001-1.035) Urine Protein TRACE H (NEGATIVE) mg/dL Urine Glucose (UA) NEGATIVE (NEGATIVE) mg/dL Urine Ketones NEGATIVE (NEGATIVE) mg/dL Urine Occult Blood TRACE-INTACT H (NEGATIVE) Urine Nitrite NEGATIVE (NEGATIVE) Urine Bilirubin NEGATIVE (NEGATIVE) Urine Urobilinogen 0.2 (<2.0) EU/dL Ur Leukocyte Esterase SMALL H (NEGATIVE) Urine RBC 1-2 (0-2/HPF) Urine WBC 15-20 (0-5/HPF) Ur Epithelial Cells OCCASIONAL (NONE-FEW) Urine Bacteria RARE (NEGATIVE) Urinalysis Comment Urine HCG, Qual NEGATIVE (NEGATIVE) 07/21/19 07/21/19 07/21/19 Range/Units 16:43 16:43 16:43 WBC (4.0-11.0) K/uL RBC (4.30-5.90) M/uL Hgb (12.0-16.0) g/dL Hct (36.0-46.0) % MCV (80.0-98.0) fL MCH (27.0-32.0) pg MCHC (31.0-37.0) g/dL RDW Std Deviation (28.0-62.0) fl RDW Coeff of Arelis (11.0-15.0) % Plt Count (150-400) K/uL MPV (7.40-12.00) fL Neut % (Auto) (48.0-80.0) % Lymph % (Auto) (16.0-40.0) % [place] % (Auto) (0.0-15.0) % Eos % (Auto) (0.0-7.0) % Baso % (Auto) (0.0-1.5) % Neut # (Auto) (1.4-5.7) K/uL Lymph # (Auto) (0.6-2.4) K/uL [place] # (Auto) (0.0-0.8) K/uL Eos # (Auto) (0.0-0.7) K/uL Baso # (Auto) (0.0-0.1) K/uL Add Manual Diff Neutrophils % (Manual) (48.0-80.0) % Band Neutrophils % % Lymphocytes % (Manual) (16.0-40.0) % Nucleated RBC % /100WBC Absolute Seg Neuts (1.4-5.7) Band Neutrophils # Lymphocytes # (Manual) (0.6-2.4) Nucleated RBCs # K/uL Lactate 2.9 H* (0.20-2.00) mmol/L Sodium 139 (136-145) mmol/L Potassium 3.5 (3.5-5.1) mmol/L Chloride 103 (98-107) mmol/L Carbon Dioxide 22.1 (21.0-32.0) mmol/L BUN 18 (7.0-18.0) mg/dL Creatinine 1.0 (0.6-1.0) mg/dL Est Cr Clr Drug Dosing 56.83 mL/min Estimated GFR (MDRD) 58.2 ml/min Glucose 105 (74-106) mg/dL Calcium 8.5 (8.5-10.1) mg/dL TSH 3rd Generation 1.87 (0.36-3.74) uIU/mL Urine Color Urine Appearance Urine pH (5.0-8.0) Ur Specific [place] (1.001-1.035) Urine Protein (NEGATIVE) mg/dL Urine Glucose (UA) (NEGATIVE) mg/dL Urine Ketones (NEGATIVE) mg/dL Urine Occult Blood (NEGATIVE) Urine Nitrite (NEGATIVE) Urine Bilirubin (NEGATIVE) Urine Urobilinogen (<2.0) EU/dL Ur Leukocyte Esterase (NEGATIVE) Urine RBC (0-2/HPF) Urine WBC (0-5/HPF) Ur Epithelial Cells (NONE-FEW) Urine Bacteria (NEGATIVE) Urinalysis Comment Urine HCG, Qual (NEGATIVE) 07/21/19 07/22/19 07/22/19 Range/Units 21:15 02:56 02:56 WBC 9.64 (4.0-11.0) K/uL RBC 3.91 L (4.30-5.90) M/uL Hgb 11.9 L (12.0-16.0) g/dL Hct 35.8 L (36.0-46.0) % MCV 91.6 (80.0-98.0) fL MCH 30.4 (27.0-32.0) pg MCHC 33.2 (31.0-37.0) g/dL RDW Std Deviation 44.7 (28.0-62.0) fl RDW Coeff of Arelis 13 (11.0-15.0) % Plt Count 114 L (150-400) K/uL MPV 9.40 (7.40-12.00) fL Neut % (Auto) (48.0-80.0) % Lymph % (Auto) (16.0-40.0) % [place] % (Auto) (0.0-15.0) % Eos % (Auto) (0.0-7.0) % Baso % (Auto) (0.0-1.5) % Neut # (Auto) (1.4-5.7) K/uL Lymph # (Auto) (0.6-2.4) K/uL [place] # (Auto) (0.0-0.8) K/uL Eos # (Auto) (0.0-0.7) K/uL Baso # (Auto) (0.0-0.1) K/uL Add Manual Diff YES Neutrophils % (Manual) 54 (48.0-80.0) % Band Neutrophils % 42 % Lymphocytes % (Manual) 4 L (16.0-40.0) % Nucleated RBC % 0.0 /100WBC Absolute Seg Neuts 5.2 (1.4-5.7) Band Neutrophils # 4.0 Lymphocytes # (Manual) 0.4 L (0.6-2.4) Nucleated RBCs # 0 K/uL Lactate 1.6 (0.20-2.00) mmol/L Sodium 145 (136-145) mmol/L Potassium 3.2 L (3.5-5.1) mmol/L Chloride 112 H (98-107) mmol/L Carbon Dioxide 18.8 L (21.0-32.0) mmol/L BUN 16 (7.0-18.0) mg/dL Creatinine 1.3 H (0.6-1.0) mg/dL Est Cr Clr Drug Dosing 44.03 mL/min Estimated GFR (MDRD) 43.0 ml/min Glucose 124 H (74-106) mg/dL Calcium 7.0 L (8.5-10.1) mg/dL TSH 3rd Generation (0.36-3.74) uIU/mL Urine Color Urine Appearance Urine pH (5.0-8.0) Ur Specific [place] (1.001-1.035) Urine Protein (NEGATIVE) mg/dL Urine Glucose (UA) (NEGATIVE) mg/dL Urine Ketones (NEGATIVE) mg/dL Urine Occult Blood (NEGATIVE) Urine Nitrite (NEGATIVE) Urine Bilirubin (NEGATIVE) Urine Urobilinogen (<2.0) EU/dL Ur Leukocyte Esterase (NEGATIVE) Urine RBC (0-2/HPF) Urine WBC (0-5/HPF) Ur Epithelial Cells (NONE-FEW) Urine Bacteria (NEGATIVE) Urinalysis Comment Urine HCG, Qual (NEGATIVE) 07/22/19 Range/Units 02:56 WBC (4.0-11.0) K/uL RBC (4.30-5.90) M/uL Hgb (12.0-16.0) g/dL Hct (36.0-46.0) % MCV (80.0-98.0) fL MCH (27.0-32.0) pg MCHC (31.0-37.0) g/dL RDW Std Deviation (28.0-62.0) fl RDW Coeff of Arelis (11.0-15.0) % Plt Count (150-400) K/uL MPV (7.40-12.00) fL Neut % (Auto) (48.0-80.0) % Lymph % (Auto) (16.0-40.0) % Baker % (Auto) (0.0-15.0) % Eos % (Auto) (0.0-7.0) % Baso % (Auto) (0.0-1.5) % Neut # (Auto) (1.4-5.7) K/uL Lymph # (Auto) (0.6-2.4) K/uL [place] # (Auto) (0.0-0.8) K/uL Eos # (Auto) (0.0-0.7) K/uL Baso # (Auto) (0.0-0.1) K/uL Add Manual Diff Neutrophils % (Manual) (48.0-80.0) % Band Neutrophils % % Lymphocytes % (Manual) (16.0-40.0) % Nucleated RBC % /100WBC Absolute Seg Neuts (1.4-5.7) Band Neutrophils # Lymphocytes # (Manual) (0.6-2.4) Nucleated RBCs # K/uL Lactate 1.3 (0.20-2.00) mmol/L Sodium (136-145) mmol/L Potassium (3.5-5.1) mmol/L Chloride (98-107) mmol/L Carbon Dioxide (21.0-32.0) mmol/L BUN (7.0-18.0) mg/dL Creatinine (0.6-1.0) mg/dL Est Cr Clr Drug Dosing mL/min Estimated GFR (MDRD) ml/min Glucose (74-106) mg/dL Calcium (8.5-10.1) mg/dL TSH 3rd Generation (0.36-3.74) uIU/mL Urine Color Urine Appearance Urine pH (5.0-8.0) Ur Specific [place] (1.001-1.035) Urine Protein (NEGATIVE) mg/dL Urine Glucose (UA) (NEGATIVE) mg/dL Urine Ketones (NEGATIVE) mg/dL Urine Occult Blood (NEGATIVE) Urine Nitrite (NEGATIVE) Urine Bilirubin (NEGATIVE) Urine Urobilinogen (<2.0) EU/dL Ur Leukocyte Esterase (NEGATIVE) Urine RBC (0-2/HPF) Urine WBC (0-5/HPF) Ur Epithelial Cells (NONE-FEW) Urine Bacteria (NEGATIVE) Urinalysis Comment Urine HCG, Qual (NEGATIVE) Bharat Results Last 24 Hours: Microbiology 07/21/19 20:35 Anaerobic Blood Culture - Final Blood - Venous - Lab Draw 07/21/19 16:44 Influenza Type A Antigen Screen - Final Nasopharyngeal Swab NEGATIVE INFLUENZA A VIRUS AG REFERENCE RANGE: NEGATIVE Influenza Type B Antigen Screen - Final NEGATIVE INFLUENZA B VIRUS AG REFERENCE RANGE: NEGATIVE Med Orders - Current: Current Medications Heparin Sodium (Porcine) (Heparin Sodium) 5,000 units SUBCUT Q8H [facility] Last Admin: 07/22/19 04:02 Dose: 5,000 units Meropenem 1 gm/ Sodium (Chloride) 100 mls @ 200 mls/hr IV Q8H [facility] Last Admin: 07/22/19 04:02 Dose: 200 mls/hr Sodium Chloride (Normal Saline) 1,000 mls @ 125 mls/hr IV ASDIRECTED [facility] Last Admin: 07/22/19 06:07 Dose: 125 mls/hr Vancomycin HCl 0.75 gm/ Sodium (Chloride) 250 mls @ 166.667 mls/hr IV Q12H [facility] Last Admin: 07/21/19 21:57 Dose: 166.667 mls/hr Discontinued Medications Acetaminophen (Tylenol Extra Strength) 1,000 mg PO ONETIME ONE Stop: 07/21/19 19:52 Last Admin: 07/21/19 19:56 Dose: 1,000 mg Sodium Chloride (Normal Saline) 1,000 mls @ 1,000 mls/hr IV .Bolus ONE Stop: 07/21/19 17:25 Last Admin: 07/21/19 16:47 Dose: 1,000 mls/hr Magnesium Sulfate 2 gm/ Premix 50 mls @ 50 mls/hr IV ONETIME ONE Stop: 07/21/19 17:51 Last Admin: 07/21/19 17:18 Dose: 50 mls/hr Ceftriaxone Sodium/Dextrose 1 (gm/ Premix) 50 mls @ 100 mls/hr IV ONETIME ONE Stop: 07/21/19 18:20 Last Admin: 07/21/19 18:32 Dose: 100 mls/hr Sodium Chloride (Normal Saline) 1,000 mls @ 1,000 mls/hr IV .Bolus ONE Stop: 07/21/19 18:50 Last Admin: 07/21/19 18:32 Dose: 1,000 mls/hr Sodium Chloride (Normal Saline) 1,000 mls @ 999 mls/hr IV .Bolus ONE Stop: 07/21/19 20:50 Last Admin: 07/21/19 19:55 Dose: 999 mls/hr Potassium Chloride 40 meq/ (Premix) 100 mls @ 25 mls/hr IV ONETIME ONE Stop: 07/22/19 07:52 Last Admin: 07/22/19 04:16 Dose: 25 mls/hr Ketorolac Tromethamine (Toradol) 30 mg IVPUSH ONETIME ONE Stop: 07/21/19 16:27 Last Admin: 07/21/19 16:49 Dose: 30 mg Potassium Chloride (Klor-Con M20) 40 meq PO ONETIME ONE Stop: 07/22/19 08:00 - Exam General: Alert, Oriented HEENT: EOMI, Mucous Membr. Moist/[place] Neck: Supple Lungs: Clear to Auscultation, Normal Respiratory Effort Cardiovascular: Regular Rate, Regular Rhythm GI/Abdominal Exam: Soft Back Exam: CVA Tenderness (R), Other (RLQ tenderness ) Skin: Warm, Dry Neurological: No New Focal Deficit, Normal Speech Sepsis Event Note - Evaluation Sepsis Screening Result: Severe Sepsis Risk - Focused Exam Vital Signs: Vital Signs Temp Resp BP Pulse Ox Pulse Ox 07/22/19 07:00 21 H 96/68 94 L 07/22/19 06:00 22 H 94/62 94 L 07/22/19 05:00 21 H 101/70 95 07/22/19 04:00 98.2 F 20 91/58 L 94 L 07/22/19 03:00 20 92/61 93 L 07/22/19 02:00 98.1 F 19 92/62 93 L 07/22/19 01:00 98.2 F 20 93/61 92 L 07/22/19 00:00 98.2 F 21 H 95/63 93 L 07/21/19 23:00 101.3 F H 21 H 110/60 93 L 94 L 07/21/19 22:00 22 H 118/69 94 L 07/21/19 21:10 101.8 F H 24 H 123/68 96 Date Exam was Performed: 07/22/19 Time Exam was Performed: 11:13 - Problem List Review Problem List Initiated/Reviewed/Updated: Yes - My Orders Last 24 Hours: My Active Orders 07/22/19 08:55 BASIC METABOLIC PANEL,BMP [CHEM] Routine - Plan Plan:: Assessment: 1. Sepsis in the setting of UTI secondary to right UVJ calculus 2. PMH: HTN Plan: 1. Awaiting urine culture/sensitivities. Dr. Gillette of Urology has been consulted; we appreciate his recommendations: uteroscopy scheduled for this afternoon. CXR: unremarkable 2. NPO till procedure; IVF 75 cc hr. Heparin 5000 qhrs DVT prophylaxis. 3. Continue home medications after procedure 4. Repleted Potassium per eICU 5. We appreciate eICU help and recommendation
[2019-07-22 09:27] LABS: CARBON DIOXIDE,CO2 18.3 mmol/L (21.0-32.0); POTASSIUM,K 4.1 mmol/L (3.5-5.1)
--- NOTE | 2019-07-22 10:13 | CR ---
INDICATION: sob TECHNIQUE: Chest 2 views. COMPARISON: 07/21/19 FINDINGS: Cardiovascular and mediastinum: Heart size and vasculature are normal in caliber and appearance. Mediastinum is within normal limits. Lungs and pleural spaces: Lungs are clear. No sign of infiltrate or mass. No sign of pleural effusion. No pneumothorax. Bones and soft tissues: No significant findings. IMPRESSION: Unremarkable chest. Dictated by: Andres Cheng MD @ 07/22/2019 10:12:26 (Electronically Signed)
[2019-07-22] MEDS ORDERED: Sodium Chloride 0.9% 1,000 ML IV SCH (10:30)
[2019-07-22] MEDS ORDERED: Iopamidol 200-M 10 ML vial ITHECAL ONE (11:13)
--- NOTE | 2019-07-22 11:32 | PCM.PREANE ---
Preanesthetic Assessment - Anesthesia/Transfusion/Family Hx Anesthesia History: Prior Anesthesia Without Reaction Family History of Anesthesia Reaction: No Transfusion History: No Prior Transfusion(s) Intubation History: Unknown - Review of Systems General: No Symptoms Pulmonary: No Symptoms Cardiovascular: No Symptoms Gastrointestinal: Abdominal Pain Neurological: No Symptoms Other: Reports: None - Physical Assessment NPO Status Date: 07/22/19 NPO Status Time: 08:00 Vital Signs: Last Vital Signs Temp 98.4 F 07/22/19 08:00 Pulse 103 H 07/22/19 10:00 Resp 25 H 07/22/19 10:00 BP 137/87 07/22/19 10:00 Pulse Ox 95 07/22/19 10:00 Height: 5 ft 4.17 in Weight: 61.8 kg ASA Class: 3 Airway Class: Mallampati = 2 Dentition: Reports: Normal Dentition ROM/Head Extension: Full Lungs: Clear to Auscultation, Normal Respiratory Effort Cardiovascular: Regular Rate, Regular Rhythm - Lab Values: Laboratory Last Values WBC 9.64 K/uL (4.0-11.0) 07/22/19 02:56 RBC 3.91 M/uL (4.30-5.90) L 07/22/19 02:56 Hgb 11.9 g/dL (12.0-16.0) L 07/22/19 02:56 Hct 35.8 % (36.0-46.0) L 07/22/19 02:56 MCV 91.6 fL (80.0-98.0) 07/22/19 02:56 MCH 30.4 pg (27.0-32.0) 07/22/19 02:56 MCHC 33.2 g/dL (31.0-37.0) 07/22/19 02:56 RDW Std Deviation 44.7 fl (28.0-62.0) 07/22/19 02:56 RDW Coeff of Arelis 13 % (11.0-15.0) 07/22/19 02:56 Plt Count 114 K/uL (150-400) L 07/22/19 02:56 MPV 9.40 fL (7.40-12.00) 07/22/19 02:56 Neut % (Auto) 89.2 % (48.0-80.0) H 07/21/19 16:43 Lymph % (Auto) 9.3 % (16.0-40.0) L 07/21/19 16:43 [place] % (Auto) 0.7 % (0.0-15.0) 07/21/19 16:43 Eos % (Auto) 0.4 % (0.0-7.0) 07/21/19 16:43 Baso % (Auto) 0.4 % (0.0-1.5) 07/21/19 16:43 Neut # (Auto) 2.5 K/uL (1.4-5.7) 07/21/19 16:43 Lymph # (Auto) 0.3 K/uL (0.6-2.4) L 07/21/19 16:43 [place] # (Auto) 0.0 K/uL (0.0-0.8) 07/21/19 16:43 Eos # (Auto) 0.0 K/uL (0.0-0.7) 07/21/19 16:43 Baso # (Auto) 0.0 K/uL (0.0-0.1) 07/21/19 16:43 Add Manual Diff YES 07/22/19 02:56 Neutrophils % (Manual) 54 % (48.0-80.0) 07/22/19 02:56 Band Neutrophils % 42 % 07/22/19 02:56 Lymphocytes % (Manual) 4 % (16.0-40.0) L 07/22/19 02:56 Nucleated RBC % 0.0 /100WBC 07/22/19 02:56 Absolute Seg Neuts 5.2 (1.4-5.7) 07/22/19 02:56 Band Neutrophils # 4.0 07/22/19 02:56 Lymphocytes # (Manual) 0.4 (0.6-2.4) L 07/22/19 02:56 Nucleated RBCs # 0 K/uL 07/22/19 02:56 Lactate 1.3 mmol/L (0.20-2.00) 07/22/19 08:55 Sodium 144 mmol/L (136-145) 07/22/19 08:55 Potassium 4.1 mmol/L (3.5-5.1) 07/22/19 08:55 Chloride 113 mmol/L (98-107) H 07/22/19 08:55 Carbon Dioxide 18.3 mmol/L (21.0-32.0) L 07/22/19 08:55 BUN 15 mg/dL (7.0-18.0) 07/22/19 08:55 Creatinine 1.3 mg/dL (0.6-1.0) H 07/22/19 08:55 Est Cr Clr Drug Dosing 44.03 mL/min 07/22/19 08:55 Estimated GFR (MDRD) 43.0 ml/min 07/22/19 08:55 Glucose 153 mg/dL (74-106) H 07/22/19 08:55 Calcium 7.2 mg/dL (8.5-10.1) L 07/22/19 08:55 TSH 3rd Generation 1.87 uIU/mL (0.36-3.74) 07/21/19 16:43 Urine Color YELLOW 07/21/19 15:26 Urine Appearance SLT CLOUDY 07/21/19 15:26 Urine pH 6.0 (5.0-8.0) 07/21/19 15:26 Ur Specific [place] 1.020 (1.001-1.035) 07/21/19 15:26 Urine Protein TRACE mg/dL (NEGATIVE) H 07/21/19 15:26 Urine Glucose (UA) NEGATIVE mg/dL (NEGATIVE) 07/21/19 15:26 Urine Ketones NEGATIVE mg/dL (NEGATIVE) 07/21/19 15:26 Urine Occult Blood TRACE-INTACT (NEGATIVE) H 07/21/19 15:26 Urine Nitrite NEGATIVE (NEGATIVE) 07/21/19 15:26 Urine Bilirubin NEGATIVE (NEGATIVE) 07/21/19 15:26 Urine Urobilinogen 0.2 EU/dL (<2.0) 07/21/19 15:26 Ur Leukocyte Esterase SMALL (NEGATIVE) H 07/21/19 15:26 Urine RBC 1-2 (0-2/HPF) 07/21/19 15:26 Urine WBC 15-20 (0-5/HPF) 07/21/19 15:26 Ur Epithelial Cells OCCASIONAL (NONE-FEW) 07/21/19 15:26 Urine Bacteria RARE (NEGATIVE) 07/21/19 15:26 Urinalysis Comment 07/21/19 15:26 Urine HCG, Qual NEGATIVE (NEGATIVE) 07/21/19 15:26 - Allergies Allergies/Adverse Reactions: Allergies Allergy/AdvReac Type Severity Reaction Status Date / Time No Known Allergies Allergy Verified 07/22/19 07:27 - Blood Blood Available: No - Anesthesia Plan Pre-Op Medication Ordered: None - Acknowledgements Pt an Appropriate Candidate for the Planned Anesthesia: Yes Alternatives and Risks of Anesthesia Discussed w Pt/Guardian: Yes Pt/Guardian Understands and Agrees with Anesthesia Plan: Yes Additional Comments: Sepsis resolved with abx and fluids, no longer in SVT, hemodynamically stable, CXR reveals no pulm congestion after fluid bolus last pm. Ate brakfast this am. OK for GET later this afternoon. PreAnesthesia Questionnaire HEENT History: Reports: None Cardiovascular History: Reports: Hypertension Respiratory History: Reports: None Gastrointestinal History: Reports: None Genitourinary History: Reports: None [employer] History: Reports: None Musculoskeletal History: Reports: None Neurological History: Reports: None Psychiatric History: Reports: None Endocrine/Metabolic History: Reports: None Hematologic History: Reports: Blood Transfusion(s) Immunologic History: Reports: None Oncologic (Cancer) History: Reports: None Dermatologic History: Reports: None - Infectious Disease History Infectious Disease History: Reports: Chicken Pox - Past Surgical History Head Surgeries/Procedures: Reports: None HEENT Surgical History: Reports: None Cardiovascular Surgical History: Reports: None Respiratory Surgical History: Reports: None GI Surgical History: Reports: Bariatric Procedure, Hernia Repair/Other Other GI Surgeries/Procedures: 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 Female Surgical History: Reports: Hysterectomy Endocrine Surgical History: Reports: None Neurological Surgical History: Reports: None Musculoskeletal Surgical History: Reports: None Oncologic Surgical History: Reports: None - SUBSTANCE USE Smoking Status *Q: Never Smoker Second Hand Smoke Exposure: No Recreational Drug Use History: No - HOME MEDS Home Medications: Home Meds Valsartan 320 mg PO DAILY 02/15/17 [History] amLODIPine [Norvasc] 5 mg PO DAILY 02/15/17 [History] cloNIDine HCl [Catapres] 0.1 mg PO BID 02/15/17 [History] cephALEXin [Keflex] 500 mg PO BID #20 cap 07/21/19 [Rx] - CURRENT (IN HOUSE) MEDS Current Meds: Current Medications Heparin Sodium (Porcine) (Heparin Sodium) 5,000 units SUBCUT Q8H [facility] Last Admin: 07/22/19 04:02 Dose: 5,000 units Vancomycin HCl 0.75 gm/ Sodium (Chloride) 250 mls @ 166.667 mls/hr IV Q12H [facility] Last Admin: 07/22/19 09:55 Dose: 166.667 mls/hr Sodium Chloride (Normal Saline) 1,000 mls @ 75 mls/hr IV Q13H [facility] Last Admin: 07/22/19 11:03 Dose: 75 mls/hr Meropenem/Sodium Chloride 1 gm (/ Premix) 50 mls @ 100 mls/hr IV Q8H [facility] Discontinued Medications Acetaminophen (Tylenol Extra Strength) 1,000 mg PO ONETIME ONE Stop: 07/21/19 19:52 Last Admin: 07/21/19 19:56 Dose: 1,000 mg Sodium Chloride (Normal Saline) 1,000 mls @ 1,000 mls/hr IV .Bolus ONE Stop: 07/21/19 17:25 Last Admin: 07/21/19 16:47 Dose: 1,000 mls/hr Magnesium Sulfate 2 gm/ Premix 50 mls @ 50 mls/hr IV ONETIME ONE Stop: 07/21/19 17:51 Last Admin: 07/21/19 17:18 Dose: 50 mls/hr Ceftriaxone Sodium/Dextrose 1 (gm/ Premix) 50 mls @ 100 mls/hr IV ONETIME ONE Stop: 07/21/19 18:20 Last Admin: 07/21/19 18:32 Dose: 100 mls/hr Sodium Chloride (Normal Saline) 1,000 mls @ 1,000 mls/hr IV .Bolus ONE Stop: 07/21/19 18:50 Last Admin: 07/21/19 18:32 Dose: 1,000 mls/hr Sodium Chloride (Normal Saline) 1,000 mls @ 999 mls/hr IV .Bolus ONE Stop: 07/21/19 20:50 Last Admin: 07/21/19 19:55 Dose: 999 mls/hr Meropenem 1 gm/ Sodium (Chloride) 100 mls @ 200 mls/hr IV Q8H [facility] Last Admin: 07/22/19 04:02 Dose: 200 mls/hr Sodium Chloride (Normal Saline) 1,000 mls @ 125 mls/hr IV ASDIRECTED [facility] Last Admin: 07/22/19 06:07 Dose: 125 mls/hr Potassium Chloride 40 meq/ (Premix) 100 mls @ 25 mls/hr IV ONETIME ONE Stop: 07/22/19 07:52 Last Admin: 07/22/19 04:16 Dose: 25 mls/hr Iopamidol (Isovue-M 200) Confirm Administered Dose 10 ml ITHECAL .STK-MED ONE Stop: 07/22/19 11:14 Ketorolac Tromethamine (Toradol) 30 mg IVPUSH ONETIME ONE Stop: 07/21/19 16:27 Last Admin: 07/21/19 16:49 Dose: 30 mg Potassium Chloride (Klor-Con M20) 40 meq PO ONETIME ONE Stop: 07/22/19 08:00 Last Admin: 07/22/19 09:40 Dose: Not Given
[2019-07-22] MEDS: Meropenem Premix 1 GM in Premix Bag 1 BAG IV SCH ×2 (12:10→20:08)
[2019-07-22] MEDS ORDERED: Acetaminophen 1,000 MG in Premix Bag 1 BAG IV ONE (12:55)
[2019-07-22] MEDS ORDERED: Furosemide 40 MG/4 ML VIAL IVPUSH ONE (15:36)
--- NOTE | 2019-07-22 15:51 | PN ---
THC Physician - Brief Progress [id number]/31/2019 10:08[facility] Wei Sandoval, [place] [facility] - MWN JEREKAYCE ROWEMartaDate of Service 07/22/2019 10:08HPI/Events of Note eICU Progress NotePt is a 53 yo F admitted 07/21 with Sepsis and a UTI. She was started on Chari penem and Vanc and has an improved WBC of 2.8 to 9.64 this am. Her LA has cleared and her SBP has rem ained > 90 along with a MAP > 65. She is resting comfortably, but is slightly tachynepic, hypoxic and tachycardic with volume overload after resusitation. Her BP is 144/68 and tolerant of diuresis, so w e will order Lasix and continue her current therapy. Case was discussed with her nurse Jenna. eICU Rec ommendations:1) Lasix 40 mg IVP x 12) Continue to monitor renal function3) Complete course of antibio tics4) O2 if needed to maintain SpO2 > 94%5) D/C IVFThank you for allowing us to participate in the c are of your patient.Interventions [id number]-Idax-pcxuetdw therapies (e.g. VTE, beta di, etc.) , Communication with other healthcare providers and/or family, Hypervolemia - evaluation and manageme nt, Infection - evaluation and management, Medication change / dose adjustment
[2019-07-22] MEDS ORDERED: Propofol 200 MG/20 ML SDV ONE (16:17)
[2019-07-22] MEDS ORDERED: fentaNYL 100 MCG/2 ML SDV ONE (16:17)
[2019-07-22] MEDS ORDERED: Midazolam 1 MG/ML 2 ML SDV ONE (16:17)
[2019-07-22] MEDS ORDERED: Glycopyrrolate 0.2 MG/ML SDV ONE (16:18)
[2019-07-22] MEDS ORDERED: Rocuronium 100 MG/10 ML Syringe ONE (16:18)
[2019-07-22] MEDS ORDERED: Ondansetron 4 MG/2 ML SDV ONE (16:18)
[2019-07-22] MEDS ORDERED: Sugammadex Sodium 200 MG/2 ML VIAL ONE (16:20)
[2019-07-22 19:29] VITALS: PULSE 102
--- NOTE | 2019-07-22 20:49 | PCM.POSTAN ---
POST ANESTHESIA ASSESSMENT - MENTAL STATUS Mental Status: Alert - VITAL SIGNS Vital Signs: Last Vital Signs Temp 37.1 C 07/22/19 19:12 Pulse 102 H 07/22/19 19:27 Resp 13 07/22/19 19:27 BP 109/73 07/22/19 19:27 Pulse Ox 97 07/22/19 19:27 - RESPIRATORY Respiratory Status: Respiratory Rate WNL - CARDIOVASCULAR CV Status: Pulse Rate WNL - GASTROINTESTINAL GI Status: No Symptoms - POST OP HYDRATION Hydration Status: Adequate & Stable
--- NOTE | 2019-07-22 22:27 | OR ---
SURGEON: Zeefrino Gillette M.D. DATE OF PROCEDURE: 07/22/2019 PREOPERATIVE DIAGNOSIS: Right lower ureteral stone, 3 mm. POSTOPERATIVE DIAGNOSIS: Right lower ureteral stone, 3 mm. OPERATION: Right ureteroscopy with stone removal. DESCRIPTION OF PROCEDURE: The patient was given general anesthesia. She is in dorsal lithotomy position, prepped and draped with sterile drapes. Cystourethroscopy was done and was normal. A guidewire was advanced in the right ureter. The lower ureter was then dilated using the UroMax II balloon dilator to approximately 15-Bulgarian. The rigid ureteroscope was advanced in the right ureter. The stone was grasped and removed. With that done, the procedure was terminated. The guidewire was removed. The bladder was emptied, and the patient was moved to recovery room in stable condition. KOSTA SALAS /[id number]
--- NOTE | 2019-07-22 22:54 | CONS ---
DATE OF CONSULTATION: 07/22/2019 DATE OF : 1965 PRIMARY CARE PHYSICIAN: Cali Patel HISTORY OF PRESENT ILLNESS: I was called about this patient about midnight last night. I was told she had a UTI and presented with symptoms of urinary sepsis. However, at the time I called, she was stable, she was afebrile, and her lactic acid was down to normal at 1.3, down from 2.9. She had a CT scan that showed a 3 mm partially obstructing right UVJ stone. History of urinary stones in the distant past. PHYSICAL EXAMINATION: GENERAL: She is alert. She is oriented. VITAL SIGNS: Normal. She has received 3 L of fluid overnight. She had breakfast. She is on LR at 125 a minute. HEART: Normal sinus rhythm. Increased respiratory rate about 24 at rest. LUNGS: Clear. ABDOMEN: Shows mild tenderness over the right CVA. Abdomen is soft and normal otherwise. IMPRESSION: Right ureterovesical junction stone, 3 mm, partially obstructive plus urinary tract infection. White blood count on admission was 2.3. White blood count this morning was 9. Right ureterovesical junction stone plus possible fluid overload. I had a chest x-ray done on her, was read as normal. However, little later on, the patient was given 40 mg of Lasix IV. Her blood pressure remained stable. Because she had breakfast already, I decided to wait and do right ureteroscopy and stone removal. KOSTA SALAS /[id number]
[2019-07-23] MEDS: Heparin Sodium 5,000 Units/ML Vial SUBCUT SCH (04:02)
[2019-07-23] MEDS: Meropenem Premix 1 GM in Premix Bag 1 BAG IV SCH ×3 (04:05→19:51)
[2019-07-23 06:30] LABS: CARBON DIOXIDE,CO2 22.3 mmol/L (21.0-32.0); POTASSIUM,K 3.6 mmol/L (3.5-5.1)
--- NOTE | 2019-07-23 07:59 | PCM48HPAN ---
Post Anesthesia Note - EVALUATION WITHIN 48HRS OF ANESTHETIC Vital Signs in Normal Range: Yes Patient Participated in Evaluation: Yes Respiratory Function Stable: Yes Airway Patent: Yes Cardiovascular Function Stable: Yes Hydration Status Stable: Yes Pain Control Satisfactory: Yes Nausea and Vomiting Control Satisfactory: Yes Mental Status Recovered: Yes Vital Signs: Last Vital Signs Temp 37.6 C 07/23/19 04:00 Pulse 102 H 07/22/19 19:27 Resp 20 07/23/19 07:00 BP 126/79 07/23/19 07:00 Pulse Ox 90 L 07/23/19 07:00
--- NOTE | 2019-07-23 15:30 | PCM.PN ---
- General Info Date of Service: 07/23/19 Subjective Update: Endorses feeling better and tolerating food/liquids w/o issuess. Denies fevers, chills malaise. Requesting to go home. Functional Status: Reports: Pain Controlled - Review of Systems General: Reports: No Symptoms. Denies: Fever, Weakness HEENT: Reports: No Symptoms Pulmonary: Reports: No Symptoms Cardiovascular: Reports: No Symptoms Gastrointestinal: Reports: No Symptoms. Denies: Abdominal Pain, Constipation, Nausea, Vomiting Genitourinary: Reports: No Symptoms. Denies: Dysuria, Frequency, Burning, Pain , Urgency Musculoskeletal: Reports: No Symptoms Neurological: Denies: Confusion, Dizziness, Headache - Patient Data Vitals - Most Recent: Last Vital Signs Temp 98.6 F 07/23/19 12:00 Pulse 102 H 07/22/19 19:27 Resp 23 H 07/23/19 15:00 BP 134/85 07/23/19 15:00 Pulse Ox 92 L 07/23/19 15:00 Weight - Most Recent: 134 lb 4.184 oz I&O - Last 24 Hours: Intake & Output 07/23/19 07/23/19 07/23/19 06:59 14:59 22:59 Intake Total 700 Output Total 2400 Balance -1700 Lab Results Last 24 Hours: Laboratory Results - last 24 hr 07/22/19 07/23/19 07/23/19 Range/Units 19:51 05:47 05:47 WBC 15.56 H (4.0-11.0) K/uL RBC 4.12 L (4.30-5.90) M/uL Hgb 12.5 (12.0-16.0) g/dL Hct 37.6 (36.0-46.0) % MCV 91.3 (80.0-98.0) fL MCH 30.3 (27.0-32.0) pg MCHC 33.2 (31.0-37.0) g/dL RDW Std Deviation 45.1 (28.0-62.0) fl RDW Coeff of Arelis 14 (11.0-15.0) % Plt Count 55 L (150-400) K/uL MPV 10.80 (7.40-12.00) fL Add Manual Diff YES Neutrophils % (Manual) 90 H (48.0-80.0) % Lymphocytes % (Manual) 6 L (16.0-40.0) % Monocytes % (Manual) 4 (0.0-15.0) % Nucleated RBC % 0.0 /100WBC Absolute Seg Neuts 14.0 H (1.4-5.7) Lymphocytes # (Manual) 0.9 (0.6-2.4) Monocytes # (Manual) 0.6 (0.0-0.8) Nucleated RBCs # 0 K/uL Sodium 142 140 (136-145) mmol/L Potassium 4.0 3.6 (3.5-5.1) mmol/L Chloride 109 H 108 H (98-107) mmol/L Carbon Dioxide 22.0 22.3 (21.0-32.0) mmol/L BUN 16 19 H (7.0-18.0) mg/dL Creatinine 1.5 H 1.6 H (0.6-1.0) mg/dL Est Cr Clr Drug Dosing 38.16 35.77 mL/min Estimated GFR (MDRD) 36.5 33.8 ml/min Glucose 108 H 94 (74-106) mg/dL Calcium 8.5 8.0 L (8.5-10.1) mg/dL Total Bilirubin 0.7 (0.2-1.0) mg/dL AST 62 H (15-37) IU/L ALT 71 H (14-63) IU/L Alkaline Phosphatase 148 H (46-116) U/L Total Protein 5.8 L (6.4-8.2) g/dL Albumin 2.3 L (3.4-5.0) g/dL Globulin 3.5 (2.6-4.0) g/dL Albumin/Globulin Ratio 0.7 L (0.9-1.6) Vancomycin Trough (5.0-10.0) ug/mL 07/23/19 Range/Units 08:42 WBC (4.0-11.0) K/uL RBC (4.30-5.90) M/uL Hgb (12.0-16.0) g/dL Hct (36.0-46.0) % MCV (80.0-98.0) fL MCH (27.0-32.0) pg MCHC (31.0-37.0) g/dL RDW Std Deviation (28.0-62.0) fl RDW Coeff of Arelis (11.0-15.0) % Plt Count (150-400) K/uL MPV (7.40-12.00) fL Add Manual Diff Neutrophils % (Manual) (48.0-80.0) % Lymphocytes % (Manual) (16.0-40.0) % Monocytes % (Manual) (0.0-15.0) % Nucleated RBC % /100WBC Absolute Seg Neuts (1.4-5.7) Lymphocytes # (Manual) (0.6-2.4) Monocytes # (Manual) (0.0-0.8) Nucleated RBCs # K/uL Sodium (136-145) mmol/L Potassium (3.5-5.1) mmol/L Chloride (98-107) mmol/L Carbon Dioxide (21.0-32.0) mmol/L BUN (7.0-18.0) mg/dL Creatinine (0.6-1.0) mg/dL Est Cr Clr Drug Dosing mL/min Estimated GFR (MDRD) ml/min Glucose (74-106) mg/dL Calcium (8.5-10.1) mg/dL Total Bilirubin (0.2-1.0) mg/dL AST (15-37) IU/L ALT (14-63) IU/L Alkaline Phosphatase (46-116) U/L Total Protein (6.4-8.2) g/dL Albumin (3.4-5.0) g/dL Globulin (2.6-4.0) g/dL Albumin/Globulin Ratio (0.9-1.6) Vancomycin Trough 16.1 H (5.0-10.0) ug/mL Bharat Results Last 24 Hours: Microbiology 07/21/19 15:26 Urine Culture - Final Urine, Clean Catch Escherichia Coli Normal Urogenital Violet 07/21/19 20:35 Aerobic Blood Culture - Preliminary Blood - Venous - Lab Draw NO GROWTH AFTER 1 DAY Anaerobic Blood Culture - Final 07/21/19 20:30 Aerobic Blood Culture - Preliminary Blood - Venous NO GROWTH AFTER 1 DAY Anaerobic Blood Culture - Preliminary NO GROWTH AFTER 1 DAY Med Orders - Current: Current Medications Meropenem/Sodium Chloride 1 gm (/ Premix) 50 mls @ 100 mls/hr IV Q8H FRANKLYN Last Admin: 07/23/19 11:23 Dose: 100 mls/hr Vancomycin HCl 500 mg/ Sodium (Chloride) 250 mls @ 250 mls/hr IV Q12H [facility] Discontinued Medications Acetaminophen (Tylenol Extra Strength) 1,000 mg PO ONETIME ONE Stop: 07/21/19 19:52 Last Admin: 07/21/19 19:56 Dose: 1,000 mg Fentanyl (Sublimaze) Confirm Administered Dose 100 mcg .ROUTE .STK-MED ONE Stop: 07/22/19 16:18 Furosemide (Lasix) 40 mg IVPUSH NOW ONE Stop: 07/22/19 15:37 Last Admin: 07/22/19 16:08 Dose: 40 mg Glycopyrrolate (Robinul) Confirm Administered Dose 0.2 mg .ROUTE .STK-MED ONE Stop: 07/22/19 16:19 Heparin Sodium (Porcine) (Heparin Sodium) 5,000 units SUBCUT Q8H [facility] Last Admin: 07/23/19 04:02 Dose: 5,000 units Sodium Chloride (Normal Saline) 1,000 mls @ 1,000 mls/hr IV .Bolus ONE Stop: 07/21/19 17:25 Last Admin: 07/21/19 16:47 Dose: 1,000 mls/hr Magnesium Sulfate 2 gm/ Premix 50 mls @ 50 mls/hr IV ONETIME ONE Stop: 07/21/19 17:51 Last Admin: 07/21/19 17:18 Dose: 50 mls/hr Ceftriaxone Sodium/Dextrose 1 (gm/ Premix) 50 mls @ 100 mls/hr IV ONETIME ONE Stop: 07/21/19 18:20 Last Admin: 07/21/19 18:32 Dose: 100 mls/hr Sodium Chloride (Normal Saline) 1,000 mls @ 1,000 mls/hr IV .Bolus ONE Stop: 07/21/19 18:50 Last Admin: 07/21/19 18:32 Dose: 1,000 mls/hr Sodium Chloride (Normal Saline) 1,000 mls @ 999 mls/hr IV .Bolus ONE Stop: 07/21/19 20:50 Last Admin: 07/21/19 19:55 Dose: 999 mls/hr Meropenem 1 gm/ Sodium (Chloride) 100 mls @ 200 mls/hr IV Q8H [facility] Last Admin: 07/22/19 04:02 Dose: 200 mls/hr Sodium Chloride (Normal Saline) 1,000 mls @ 125 mls/hr IV ASDIRECTED [facility] Last Admin: 07/22/19 06:07 Dose: 125 mls/hr Vancomycin HCl 0.75 gm/ Sodium (Chloride) 250 mls @ 166.667 mls/hr IV Q12H [facility] Last Admin: 07/23/19 09:38 Dose: 166.667 mls/hr Potassium Chloride 40 meq/ (Premix) 100 mls @ 25 mls/hr IV ONETIME ONE Stop: 07/22/19 07:52 Last Admin: 07/22/19 04:16 Dose: 25 mls/hr Sodium Chloride (Normal Saline) 1,000 mls @ 75 mls/hr IV Q13H [facility] Last Admin: 07/22/19 11:03 Dose: 75 mls/hr Acetaminophen 1,000 mg/ Premix 100 mls @ 400 mls/hr IV ONETIME ONE Stop: 07/22/19 13:09 Last Admin: 07/22/19 13:04 Dose: 400 mls/hr Iopamidol (Isovue-M 200) Confirm Administered Dose 10 ml ITHECAL .STK-MED ONE Stop: 07/22/19 11:14 Ketorolac Tromethamine (Toradol) 30 mg IVPUSH ONETIME ONE Stop: 07/21/19 16:27 Last Admin: 07/21/19 16:49 Dose: 30 mg Midazolam HCl (Versed 1 Mg/Ml) Confirm Administered Dose 2 mg .ROUTE .STK-MED ONE Stop: 07/22/19 16:18 Ondansetron HCl (Zofran) Confirm Administered Dose 4 mg .ROUTE .STK-MED ONE Stop: 07/22/19 16:19 Potassium Chloride (Klor-Con M20) 40 meq PO ONETIME ONE Stop: 07/22/19 08:00 Last Admin: 07/22/19 09:40 Dose: Not Given Propofol (Diprivan 20 Ml) Confirm Administered Dose 200 mg .ROUTE .STK-MED ONE Stop: 07/22/19 16:18 Rocuronium [place] (Zemuron) Confirm Administered Dose 100 mg .ROUTE .STK-MED ONE Stop: 07/22/19 16:19 Sugammadex Sodium (Bridion) Confirm Administered Dose 200 mg .ROUTE .STK-MED ONE Stop: 07/22/19 16:21 - Exam General: Alert, Oriented, Cooperative, No Acute Distress HEENT: EOMI, Mucous Membr. Moist/[place] Neck: Supple Lungs: Clear to Auscultation, Normal Respiratory Effort Cardiovascular: Regular Rate, Regular Rhythm GI/Abdominal Exam: Non-Tender Back Exam: No: CVA Tenderness (L), CVA Tenderness (R) Skin: Warm, Dry Neurological: No New Focal Deficit Psy/Mental Status: Alert Sepsis Event Note - Evaluation Sepsis Screening Result: Sepsis Risk - Focused Exam Vital Signs: Vital Signs Temp Resp BP Pulse Ox Pulse Ox 07/23/19 15:00 23 H 134/85 92 L 07/23/19 14:00 20 134/85 91 L 07/23/19 12:00 98.6 F 20 125/80 93 L 07/23/19 11:00 18 129/71 92 L 07/23/19 10:00 20 124/75 91 L 07/23/19 09:00 23 H 131/78 91 L 07/23/19 07:59 99.5 F 16 151/78 H 95 07/23/19 07:00 20 126/79 90 L 07/23/19 06:00 20 131/76 94 L 07/23/19 05:38 94 L 07/23/19 05:00 21 H 124/71 90 L 07/23/19 04:00 99.7 F 20 126/83 96 Date Exam was Performed: 07/23/19 Time Exam was Performed: 15:33 - Problem List Review Problem List Initiated/Reviewed/Updated: Yes - My Orders Last 24 Hours: My Active Orders 07/23/19 11:12 SCD [Sequential Compression Device] [OM.PC] Routine - Plan Plan:: 53 yo female admitted for sepsis from UTI. S/p Uteroscope for 3 mm calculi/ Sepsis and UTI secondary to E Coli 1. Leukocytosis: on Vancomycin and meropenem: sensitive; continue to monitor 2. Continue regular diet and monitor 3. Thrombocytopenia: most likely from sepsis but could also be from Heparin, if heparin was ever used in past ; will hold heparin for now ; repeat CBC in afternoon ; place on SCD's now ; will consider Fondaparinux (7.5 mg daily) as anti-coagulation moving forward if necessary. Continue to monitor. 4. Dr Gilltete of Urology consulted : we appreciate his recommendations moving forward.
--- NOTE | 2019-07-23 19:23 | CR ---
Abdomen: Single fluoroscopic spot view was obtained of the right sided pelvis. Study shows ureteroscope in place with guidewire within the location of the ureter. Fluoroscopy time given as 1.5 seconds. Impression: 1. Fluoroscopic procedure as noted above. Diagnostic code #2 This report was dictated in [place] Standard Time
--- NOTE | 2019-07-23 19:58 | PN ---
THC Physician - Brief Progress [id number]/01/2020 19:54[facility] Wei Sandoval, RUDI - MAYANKN (SVETLANA) - MAYANKN KAYCE NIMartaDate of Service 07/23/2019 19:54HPI/Events of Note eICU Progress NotePt is a 53 yo F admitted 07/21 with Sepsis and a UTI. She was started on Chari penem and Vanc and has an improved WBC of 2.8 to 14.8 is am. Her LA has cleared and her SBP has remai lorenzo > 90 along with a MAP > 65. She is resting comfortably, she is on RA today. Her BP is is normal. Case was discussed with her nurseeICU Recommendations:1) Continue to monitor renal function2) Complet e course of antibiotics3) O2 if needed to maintain SpO2 > 94%Thank you for allowing us to participate in the care of your patient.Interventions Minor-Clinical assessment - ordering diagnostic testsElect ronically Signed by: ROMEL JACOBSON) on 07/23/2019 19:57
[2019-07-24] MEDS: Meropenem Premix 1 GM in Premix Bag 1 BAG IV SCH ×2 (03:51→11:52)
[2019-07-24 06:38] LABS: BLOOD UREA NITROGEN,BUN 17 mg/dL (7.0-18.0); CARBON DIOXIDE,CO2 23.5 mmol/L (21.0-32.0); CHLORIDE,CL 109 mmol/L (98-107); GLUCOSE RANDOM 85 mg/dL (74-106); POTASSIUM,K 3.4 mmol/L (3.5-5.1); SODIUM,NA 142 mmol/L (136-145)
[2019-07-24] MEDS ORDERED: Potassium Chloride Riders 20 MEQ in Premix Bag 1 BAG IV ONE (06:51)
--- NOTE | 2019-07-24 06:56 | PN ---
THC Physician - Brief Progress [id number]/02/2020 06:54[facility] breanneWei, RUDI - CATIA ([id number]) - KAYCE DIASDate of Service 07/24/2019 06:54HPI/Events of Note Kcl 20 meq over 2 hrs IV ordered for K of 3.4, Cr normal. follow K at 10 AM.Interventions Minor -Electrolyte abnormality - evaluation and managementElectronically Signed by: SHADIA PICKARD) on 0 07/24/2019 06:55
[2019-07-24] MEDS ORDERED: Potassium Chloride 20 MEQ Tab.ER PO ONE (09:31)
--- NOTE | 2019-07-24 09:44 | PN ---
THC Physician - Brief Progress [id number]/02/2020 09:40[facility] Wei Sandoval, RUDI - MAYANKN (JERODN) - MWN JEREKAYCE ROWEMartaDate of Service 07/24/2019 09:40HPI/Events of Note eICU Progress [id number] admitted for sepsis secondary to UTI. History obtained primarily from rev iew of EMR.Camera exam: Laying in bed. Vitals monitor reviewed.Vitals: reviewedLabs: reviewedRadiolog y: reviewedMeds: reviewedeICU Impression and Recommendations:Sepsis secondary to UTI, status post cys tourethroscopy and stone removalContinue to monitor renal function and urine outputComplete course of antibioticsDVT and GI prophylaxis as appropriate.Thank you for allowing us to participate in the car e of this patient.The above note transcribed with the assistance of dictation software. Please excuse any errors.Interventions Major-Sepsis - evaluation and management
[2019-07-24 10:04] VITALS: BP 135/88
--- NOTE | 2019-07-24 11:31 | PCM.DCSUM1 ---
<Bishnu Moody - Last Filed: 07/24/19 11:25> Discharge Summary - Hospital Course Free Text/Narrative:: Discharge summary Admission date 07/21/2019 Discharge date July 24, 2019 Admission diagnoses: Sepsis in the setting of UTI with calculi at UVJ junction Past medical history: Hypertension Consultations:Dr Gillette of Urology Procedures: Uteroscope Hospital course: 53-year-old female with past medical history of hypertension presenting with/ after 5 days of abdominal pain and right-sided flank pain. Patient was found to be septic with identifiable source of infection; admitted to ICU: 3 mm stone at UVJ junction on right side, fevers chills, leukopenia. Patient was initiated on sepsis protocol receiving intravenous fluids, and started on vancomycin and meropenem. Dr. Gillette of urology was consulted; uteroscope performed for the surgical expulsion of stone. Antibiotics were continued till sensitivities returned. Concerns for HIT ; placed patient on SCDs; discontinued heparin and vancomycin; following day platelet count improved; white count elevated; sensitivities return with ciprofloxacin being chosen. Patient was more or less stable and afebrile and requesting to go home. Following day WBC within normal limit. Tolerating food p.o. liquids urinating and stooling, and denying any pain. Patient sent home with additional 7 days of 500 mg ciprofloxacin twice daily and advised to follow-up PCP. Patient also advised to restart her home medications for blood pressure; advised however blood pressure was controlled without medications during stay; advised to follow with PCP regarding need to continue your need for dose adjustment. Patient understood Discharge condition: Stable Disposition: Home Discharge medications: Home medication plus ciprofloxacin - Discharge Data Discharge Date: 07/24/19 Discharge Disposition: Home, Self-Care 01 Condition: Stable - Referral to Home Health Primary Care Physician: Cali Patel MD - Patient Summary/Data Consults: Consultations 07/22/19 00:50 Consult to Physician [CONS] Routine - Patient Instructions Diet: Heart Healthy Diet Notify Provider of: Fever, Increased Pain, Nausea and/or Vomiting - Discharge Plan Prescriptions/Med Rec: Ciprofloxacin [Ciprofloxacin HCl] 500 mg PO BID 7 Days #14 tab Home Medications: Home Meds amLODIPine [Norvasc] 5 mg PO DAILY 02/15/17 [History] cloNIDine HCl [Catapres] 0.1 mg PO BID 02/15/17 [History] Losartan Potassium 100 mg PO DAILY 07/22/19 [History] Ciprofloxacin [Ciprofloxacin HCl] 500 mg PO BID 7 Days #14 tab 07/24/19 [Rx] Patient Handouts: Urinary Tract Infection, Adult, [id number], Cystoscopy, Care After, Ciprofloxacin tablets Referrals: [facility] [Ordering Only Provider] - Cali Patel MD [Primary Care Provider] - 07/29/19 2:15 pm - Discharge Summary/Plan Comment DC Time >30 min.: No - Patient Data Vitals - Most Recent: Last Vital Signs Temp 98.1 F 07/24/19 09:00 Pulse 102 H 07/22/19 19:27 Resp 21 H 07/24/19 10:00 BP 135/88 07/24/19 10:00 Pulse Ox 94 L 07/24/19 10:00 Weight - Most Recent: 60.5 kg I&O - Last 24 hours: Intake & Output 07/23/19 07/24/19 07/24/19 22:59 06:59 14:59 Intake Total 50 400 Output Total 900 Balance 50 -500 Lab Results - Last 24 hrs: Laboratory Results - last 24 hr 07/23/19 07/24/19 07/24/19 Range/Units 15:45 06:01 06:01 WBC 14.40 H 10.28 (4.0-11.0) K/uL RBC 4.08 L 4.18 L (4.30-5.90) M/uL Hgb 12.6 12.9 (12.0-16.0) g/dL Hct 36.6 37.5 (36.0-46.0) % MCV 89.7 89.7 (80.0-98.0) fL MCH 30.9 30.9 (27.0-32.0) pg MCHC 34.4 34.4 (31.0-37.0) g/dL RDW Std Deviation 44.1 43.2 (28.0-62.0) fl RDW Coeff of Arelis 13 13 (11.0-15.0) % Plt Count 48 L 59 L (150-400) K/uL MPV 10.50 10.40 (7.40-12.00) fL Neut % (Auto) 86.1 H (48.0-80.0) % Lymph % (Auto) 6.1 L (16.0-40.0) % [place] % (Auto) 5.7 (0.0-15.0) % Eos % (Auto) 1.9 (0.0-7.0) % Baso % (Auto) 0.2 (0.0-1.5) % Neut # (Auto) 8.8 H (1.4-5.7) K/uL Lymph # (Auto) 0.6 (0.6-2.4) K/uL [place] # (Auto) 0.6 (0.0-0.8) K/uL Eos # (Auto) 0.2 (0.0-0.7) K/uL Baso # (Auto) 0.0 (0.0-0.1) K/uL Add Manual Diff YES Neutrophils % (Manual) 83 H (48.0-80.0) % Band Neutrophils % 3 % Lymphocytes % (Manual) 8 L (16.0-40.0) % Monocytes % (Manual) 4 (0.0-15.0) % Eosinophils % (Manual) 2 (0.0-7.0) % Nucleated RBC % 0.0 0.0 /100WBC Absolute Seg Neuts 12.0 H (1.4-5.7) Band Neutrophils # 0.4 Lymphocytes # (Manual) 1.2 (0.6-2.4) Monocytes # (Manual) 0.6 (0.0-0.8) Eosinophils # (Manual) 0.3 (0.0-0.7) Nucleated RBCs # 0 0 K/uL Sodium 142 (136-145) mmol/L Potassium 3.4 L (3.5-5.1) mmol/L Chloride 109 H (98-107) mmol/L Carbon Dioxide 23.5 (21.0-32.0) mmol/L BUN 17 (7.0-18.0) mg/dL Creatinine 0.9 (0.6-1.0) mg/dL Est Cr Clr Drug Dosing 63.60 mL/min Estimated GFR (MDRD) > 60.0 ml/min Glucose 85 (74-106) mg/dL Calcium 8.0 L (8.5-10.1) mg/dL Total Bilirubin 0.7 (0.2-1.0) mg/dL AST 28 (15-37) IU/L ALT 47 (14-63) IU/L Alkaline Phosphatase 142 H (46-116) U/L Total Protein 5.6 L (6.4-8.2) g/dL Albumin 2.1 L (3.4-5.0) g/dL Globulin 3.5 (2.6-4.0) g/dL Albumin/Globulin Ratio 0.6 L (0.9-1.6) YISEL Results - Last 24 hrs: Microbiology 07/21/19 20:35 Aerobic Blood Culture - Preliminary Blood - Venous - Lab Draw NO GROWTH AFTER 2 DAYS Anaerobic Blood Culture - Final 07/21/19 20:30 Aerobic Blood Culture - Preliminary Blood - Venous NO GROWTH AFTER 2 DAYS Anaerobic Blood Culture - Preliminary NO GROWTH AFTER 2 DAYS 07/21/19 15:26 Urine Culture - Final Urine, Clean Catch Escherichia Coli Normal Urogenital Violet Med Orders - Current: Current Medications Meropenem/Sodium Chloride 1 gm (/ Premix) 50 mls @ 100 mls/hr IV Q8H [facility] Last Admin: 07/24/19 03:51 Dose: 100 mls/hr Discontinued Medications Acetaminophen (Tylenol Extra Strength) 1,000 mg PO ONETIME ONE Stop: 07/21/19 19:52 Last Admin: 07/21/19 19:56 Dose: 1,000 mg Fentanyl (Sublimaze) Confirm Administered Dose 100 mcg .ROUTE .STK-MED ONE Stop: 07/22/19 16:18 Furosemide (Lasix) 40 mg IVPUSH NOW ONE Stop: 07/22/19 15:37 Last Admin: 07/22/19 16:08 Dose: 40 mg Glycopyrrolate (Robinul) Confirm Administered Dose 0.2 mg .ROUTE .STK-MED ONE Stop: 07/22/19 16:19 Heparin Sodium (Porcine) (Heparin Sodium) 5,000 units SUBCUT Q8H [facility] Last Admin: 07/23/19 04:02 Dose: 5,000 units Sodium Chloride (Normal Saline) 1,000 mls @ 1,000 mls/hr IV .Bolus ONE Stop: 07/21/19 17:25 Last Admin: 07/21/19 16:47 Dose: 1,000 mls/hr Magnesium Sulfate 2 gm/ Premix 50 mls @ 50 mls/hr IV ONETIME ONE Stop: 07/21/19 17:51 Last Admin: 07/21/19 17:18 Dose: 50 mls/hr Ceftriaxone Sodium/Dextrose 1 (gm/ Premix) 50 mls @ 100 mls/hr IV ONETIME ONE Stop: 07/21/19 18:20 Last Admin: 07/21/19 18:32 Dose: 100 mls/hr Sodium Chloride (Normal Saline) 1,000 mls @ 1,000 mls/hr IV .Bolus ONE Stop: 07/21/19 18:50 Last Admin: 07/21/19 18:32 Dose: 1,000 mls/hr Sodium Chloride (Normal Saline) 1,000 mls @ 999 mls/hr IV .Bolus ONE Stop: 07/21/19 20:50 Last Admin: 07/21/19 19:55 Dose: 999 mls/hr Meropenem 1 gm/ Sodium (Chloride) 100 mls @ 200 mls/hr IV Q8H [facility] Last Admin: 07/22/19 04:02 Dose: 200 mls/hr Sodium Chloride (Normal Saline) 1,000 mls @ 125 mls/hr IV ASDIRECTED [facility] Last Admin: 07/22/19 06:07 Dose: 125 mls/hr Vancomycin HCl 0.75 gm/ Sodium (Chloride) 250 mls @ 166.667 mls/hr IV Q12H [facility] Last Admin: 07/23/19 09:38 Dose: 166.667 mls/hr Potassium Chloride 40 meq/ (Premix) 100 mls @ 25 mls/hr IV ONETIME ONE Stop: 07/22/19 07:52 Last Admin: 07/22/19 04:16 Dose: 25 mls/hr Sodium Chloride (Normal Saline) 1,000 mls @ 75 mls/hr IV Q13H [facility] Last Admin: 07/22/19 11:03 Dose: 75 mls/hr Acetaminophen 1,000 mg/ Premix 100 mls @ 400 mls/hr IV ONETIME ONE Stop: 07/22/19 13:09 Last Admin: 07/22/19 13:04 Dose: 400 mls/hr Vancomycin HCl 500 mg/ Sodium (Chloride) 250 mls @ 250 mls/hr IV Q12H [facility] Potassium Chloride 20 meq/ (Premix) 50 mls @ 25 mls/hr IV ONETIME ONE Stop: 07/24/19 08:50 Last Admin: 07/24/19 09:33 Dose: Not Given Iopamidol (Isovue-M 200) Confirm Administered Dose 10 ml ITHECAL .STK-MED ONE Stop: 07/22/19 11:14 Ketorolac Tromethamine (Toradol) 30 mg IVPUSH ONETIME ONE Stop: 07/21/19 16:27 Last Admin: 07/21/19 16:49 Dose: 30 mg Midazolam HCl (Versed 1 Mg/Ml) Confirm Administered Dose 2 mg .ROUTE .STK-MED ONE Stop: 07/22/19 16:18 Ondansetron HCl (Zofran) Confirm Administered Dose 4 mg .ROUTE .STK-MED ONE Stop: 07/22/19 16:19 Potassium Chloride (Klor-Con M20) 40 meq PO ONETIME ONE Stop: 07/22/19 08:00 Last Admin: 07/22/19 09:40 Dose: Not Given Potassium Chloride (Klor-Con M20) 20 meq PO ONETIME ONE Stop: 07/24/19 09:32 Last Admin: 07/24/19 09:57 Dose: 20 meq Propofol (Diprivan 20 Ml) Confirm Administered Dose 200 mg .ROUTE .STK-MED ONE Stop: 07/22/19 16:18 Rocuronium [place] (Zemuron) Confirm Administered Dose 100 mg .ROUTE .STK-MED ONE Stop: 07/22/19 16:19 Sugammadex Sodium (Bridion) Confirm Administered Dose 200 mg .ROUTE .STK-MED ONE Stop: 07/22/19 16:21 <Antoine Broussard - Last Filed: 07/25/19 16:48> Discharge Summary - Referral to Home Health Primary Care Physician: Cali Patel MD - Patient Summary/Data Consults: Consultations 07/22/19 00:50 Consult to Physician [CONS] Routine - Patient Data Vitals - Most Recent: Last Vital Signs Temp 36.7 C 07/24/19 09:00 Pulse 102 H 07/22/19 19:27 Resp 21 H 07/24/19 10:00 BP 135/88 07/24/19 10:00 Pulse Ox 94 L 07/24/19 10:00 YISEL Results - Last 24 hrs: Microbiology 07/21/19 20:35 Aerobic Blood Culture - Preliminary Blood - Venous - Lab Draw NO GROWTH AFTER 3 DAYS Anaerobic Blood Culture - Final 07/21/19 20:30 Aerobic Blood Culture - Preliminary Blood - Venous NO GROWTH AFTER 3 DAYS Anaerobic Blood Culture - Preliminary NO GROWTH AFTER 3 DAYS Med Orders - Current: Current Medications Discontinued Medications Acetaminophen (Tylenol Extra Strength) 1,000 mg PO ONETIME ONE Stop: 07/21/19 19:52 Last Admin: 07/21/19 19:56 Dose: 1,000 mg Fentanyl (Sublimaze) Confirm Administered Dose 100 mcg .ROUTE .STK-MED ONE Stop: 07/22/19 16:18 Furosemide (Lasix) 40 mg IVPUSH NOW ONE Stop: 07/22/19 15:37 Last Admin: 07/22/19 16:08 Dose: 40 mg Glycopyrrolate (Robinul) Confirm Administered Dose 0.2 mg .ROUTE .STK-MED ONE Stop: 07/22/19 16:19 Heparin Sodium (Porcine) (Heparin Sodium) 5,000 units SUBCUT Q8H [facility] Last Admin: 07/23/19 04:02 Dose: 5,000 units Sodium Chloride (Normal Saline) 1,000 mls @ 1,000 mls/hr IV .Bolus ONE Stop: 07/21/19 17:25 Last Admin: 07/21/19 16:47 Dose: 1,000 mls/hr Magnesium Sulfate 2 gm/ Premix 50 mls @ 50 mls/hr IV ONETIME ONE Stop: 07/21/19 17:51 Last Admin: 07/21/19 17:18 Dose: 50 mls/hr Ceftriaxone Sodium/Dextrose 1 (gm/ Premix) 50 mls @ 100 mls/hr IV ONETIME ONE Stop: 07/21/19 18:20 Last Admin: 07/21/19 18:32 Dose: 100 mls/hr Sodium Chloride (Normal Saline) 1,000 mls @ 1,000 mls/hr IV .Bolus ONE Stop: 07/21/19 18:50 Last Admin: 07/21/19 18:32 Dose: 1,000 mls/hr Sodium Chloride (Normal Saline) 1,000 mls @ 999 mls/hr IV .Bolus ONE Stop: 07/21/19 20:50 Last Admin: 07/21/19 19:55 Dose: 999 mls/hr Meropenem 1 gm/ Sodium (Chloride) 100 mls @ 200 mls/hr IV Q8H [facility] Last Admin: 07/22/19 04:02 Dose: 200 mls/hr Sodium Chloride (Normal Saline) 1,000 mls @ 125 mls/hr IV ASDIRECTED [facility] Last Admin: 07/22/19 06:07 Dose: 125 mls/hr Vancomycin HCl 0.75 gm/ Sodium (Chloride) 250 mls @ 166.667 mls/hr IV Q12H [facility] Last Admin: 07/23/19 09:38 Dose: 166.667 mls/hr Potassium Chloride 40 meq/ (Premix) 100 mls @ 25 mls/hr IV ONETIME ONE Stop: 07/22/19 07:52 Last Admin: 07/22/19 04:16 Dose: 25 mls/hr Sodium Chloride (Normal Saline) 1,000 mls @ 75 mls/hr IV Q13H [facility] Last Admin: 07/22/19 11:03 Dose: 75 mls/hr Meropenem/Sodium Chloride 1 gm (/ Premix) 50 mls @ 100 mls/hr IV Q8H [facility] Last Admin: 07/24/19 11:52 Dose: 100 mls/hr Acetaminophen 1,000 mg/ Premix 100 mls @ 400 mls/hr IV ONETIME ONE Stop: 07/22/19 13:09 Last Admin: 07/22/19 13:04 Dose: 400 mls/hr Vancomycin HCl 500 mg/ Sodium (Chloride) 250 mls @ 250 mls/hr IV Q12H [facility] Potassium Chloride 20 meq/ (Premix) 50 mls @ 25 mls/hr IV ONETIME ONE Stop: 07/24/19 08:50 Last Admin: 07/24/19 09:33 Dose: Not Given Iopamidol (Isovue-M 200) Confirm Administered Dose 10 ml ITHECAL .STK-MED ONE Stop: 07/22/19 11:14 Ketorolac Tromethamine (Toradol) 30 mg IVPUSH ONETIME ONE Stop: 07/21/19 16:27 Last Admin: 07/21/19 16:49 Dose: 30 mg Midazolam HCl (Versed 1 Mg/Ml) Confirm Administered Dose 2 mg .ROUTE .STK-MED ONE Stop: 07/22/19 16:18 Ondansetron HCl (Zofran) Confirm Administered Dose 4 mg .ROUTE .STK-MED ONE Stop: 07/22/19 16:19 Potassium Chloride (Klor-Con M20) 40 meq PO ONETIME ONE Stop: 07/22/19 08:00 Last Admin: 07/22/19 09:40 Dose: Not Given Potassium Chloride (Klor-Con M20) 20 meq PO ONETIME ONE Stop: 07/24/19 09:32 Last Admin: 07/24/19 09:57 Dose: 20 meq Propofol (Diprivan 20 Ml) Confirm Administered Dose 200 mg .ROUTE .STK-MED ONE Stop: 07/22/19 16:18 Rocuronium [place] (Zemuron) Confirm Administered Dose 100 mg .ROUTE .STK-MED ONE Stop: 07/22/19 16:19 Sugammadex Sodium (Bridion) Confirm Administered Dose 200 mg .ROUTE .STK-MED ONE Stop: 07/22/19 16:21 - Free Text/Narrative Note: I have examined patient with resident. I have discussed findings and treatment plan with the resident. I agree with the assessment and plan as outlined in the following note.
== END 2019-07-24 12:35 | disposition home or self-care (01) | DRG 710 ==
LOC: MW.ED 15:16 → MW.ICU 18:54
PROVIDERS: ADMIT Internal Medicine; ATTEND Internal Medicine
PROC: 0TC68ZZ Extirpation of Matter from Right Ureter, Via Natural or Artificial Opening Endoscopic (ICD-10-PCS; principal; 2019-07-22)
DX: A41.9 Sepsis, unspecified organism (principal); N39.0 Urinary tract infection, site not specified; N20.1 Calculus of ureter; I10 Essential (primary) hypertension; D69.6 Thrombocytopenia, unspecified; Z90.710 Acquired absence of both cervix and uterus
CPT/HCPCS: 00918; 36415; 71046; 71046-26; 74176; 74176-26; 76000; 76000-26; 80048; 80053; 80202; 81001; 81025; 83605; 84443; 85025; 87040; 87086; 87088; 87186; 87804; 88300; 93005; 96361; 96365; 96367; 96375; 99284; 99285-25; A9270-GY; C1769; J0131; J0696; J1644; J1885; J1940; J2185; J2250; J2405; J2704; J3010; J3370; J3475; J3480; J3490; J7030; J7050; Q9966

== ENCOUNTER 2019-11-18 07:33 | Emergency (ER) | payer BC ==
--- NOTE | 2019-11-18 08:09 | EDM.PDOC ---
ED HPI GENERAL MEDICAL PROBLEM - General Chief Complaint: Genitourinary Problem Stated Complaint: UTI Time Seen by Provider: 11/18/19 07:53 Source of Information: Reports: Patient History Limitations: Reports: No Limitations - History of Present Illness INITIAL COMMENTS - FREE TEXT/NARRATIVE: This 54-year-old female presents to the emergency room with a chief complaint of urgency and frequency all night. Patient states she has had some fevers and chills but at the time of evaluation she is got a normal temperature. States she has had a history of multiple urinary tract infections and admission to the ICU 08/11/2019. At that time the patient had renal stones removed Onset: Today Duration: Hour(s): (12), Getting Worse Location: Reports: Other (Frequency and pain on urination) Quality: Reports: Burning Severity: Moderate Improves with: Reports: None Worsens with: Reports: None Associated Symptoms: Reports: Fever/Chills - Related Data Allergies Allergy/AdvReac Type Severity Reaction Status Date / Time No Known Allergies Allergy Verified 11/18/19 07:48 Home Meds: Home Meds amLODIPine [Norvasc] 5 mg PO DAILY 02/15/17 [History] cloNIDine HCL [Catapres] 0.1 mg PO BID 02/15/17 [History] Losartan Potassium 100 mg PO DAILY 07/22/19 [History] Ciprofloxacin [Ciprofloxacin HCl] 500 mg PO BID 7 Days #14 tab 07/24/19 [Rx] Past Medical History HEENT History: Reports: None Cardiovascular History: Reports: Hypertension Respiratory History: Reports: None Gastrointestinal History: Reports: None Genitourinary History: Reports: None 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 Musculoskeletal History: Reports: None Neurological History: Reports: None Psychiatric History: Reports: None Endocrine/Metabolic History: Reports: None Hematologic History: Reports: Blood Transfusion(s) Immunologic History: Reports: None Oncologic (Cancer) History: Reports: None Dermatologic History: Reports: None - Infectious Disease History Infectious Disease History: Reports: Chicken Pox - Past Surgical History Head Surgeries/Procedures: Reports: None HEENT Surgical History: Reports: None Cardiovascular Surgical History: Reports: None Respiratory Surgical History: Reports: None GI Surgical History: Reports: Bariatric Procedure, Hernia Repair/Other Other GI Surgeries/Procedures: 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 Female Surgical History: Reports: Hysterectomy Endocrine Surgical History: Reports: None Neurological Surgical History: Reports: None Musculoskeletal Surgical History: Reports: None Oncologic Surgical History: Reports: None Social & Family History - Family History Family Medical History: Noncontributory - Tobacco Use Smoking Status *Q: Never Smoker - Caffeine Use Caffeine Use: Reports: Coffee ED ROS GENERAL - Review of Systems Review Of Systems: See Below Constitutional: Reports: Fever, Chills HEENT: Reports: No Symptoms Respiratory: Reports: No Symptoms Cardiovascular: Reports: No Symptoms Endocrine: Reports: No Symptoms GI/Abdominal: Reports: No Symptoms : Reports: Dysuria, Frequency, Urgency. Denies: Discharge, Flank Pain, Hematuria, Irregular Menses, Urinary Retention Musculoskeletal: Reports: No Symptoms Skin: Reports: No Symptoms Neurological: Reports: No Symptoms Psychiatric: Reports: No Symptoms Hematologic/Lymphatic: Reports: No Symptoms Immunologic: Reports: No Symptoms ED EXAM, RENAL/ - Physical Exam Exam: See Below Exam Limited By: No Limitations General Appearance: Alert, WD/WN, No Apparent Distress Eye Exam: Bilateral Eye: Normal Fundi, Normal Inspection, Nystagmus Ears: Normal External Exam, Normal Canal, Hearing Grossly Normal, Normal TMs Nose: Normal Inspection, Normal Mucosa Throat/Mouth: Normal Inspection, Normal Lips, Normal Teeth, Normal Gums, Normal Voice, No Airway Compromise Head: Atraumatic, Normocephalic Neck: Normal Inspection, Supple, Non-Tender, Full Range of Motion Respiratory/Chest: No Respiratory Distress, Lungs Clear, Normal Breath Sounds, Chest Non-Tender Cardiovascular: Normal Peripheral Pulses, Regular Rate, Rhythm, No Edema, No Murmur, No Rub GI/Abdominal: Normal Bowel Sounds, Soft, Non-Tender, No Organomegaly (Female) Exam: Deferred Rectal (Female) Exam: Deferred Back Exam: Normal Inspection, Full Range of Motion. No: CVA Tenderness (L), CVA Tenderness (R) Extremities: Normal Inspection, Normal Range of Motion, Non-Tender Neurological: Alert, Oriented, CN II-XII Intact, Normal Cognition, Normal Gait, Normal Reflexes, No Motor/Sensory Deficits Psychiatric: Normal Affect, Normal Mood Skin Exam: Warm, Dry, Intact, Normal Color, No Rash Lymphatic: No Adenopathy Course - Vital Signs Text/Narrative:: 54-year-old female presents the emergency room with a chief complaint of frequency x1. The patient has a history of UTI complications with a kidney stone in the past. Patient also states she has had fevers all night. Patient denies pain on urination at this time Patient found to have on laboratory results a. UTI. Electrolytes and CBC. Patient will be discharged with a diagnosis of an uncomplicated UTI/on Keflex and discharged department follow-up with primary care physician Last Recorded V/S: Last Vital Signs Temp 98.0 F 11/18/19 07:43 Pulse 98 11/18/19 09:01 Resp 16 11/18/19 09:01 BP 118/60 11/18/19 09:01 Pulse Ox 96 11/18/19 09:01 - Orders/Labs/Meds Orders: Active Orders 24 hr Category Date Time Status CULTURE URINE [RM] Stat Lab 11/18/19 07:40 Received cephALEXin [Keflex] Med 11/18/19 09:02 Once 500 mg PO ONETIME ONE Medication Orders Cephalexin (Keflex) 500 mg PO ONETIME ONE Stop: 11/18/19 09:03 Labs: Laboratory Tests 11/18/19 11/18/19 11/18/19 Range/Units 07:40 08:26 08:26 WBC 11.11 H (4.0-11.0) K/uL RBC 4.42 (4.30-5.90) M/uL Hgb 13.7 (12.0-16.0) g/dL Hct 41.7 (36.0-46.0) % MCV 94.3 (80.0-98.0) fL MCH 31.0 (27.0-32.0) pg MCHC 32.9 (31.0-37.0) g/dL RDW Std Deviation 43.6 (28.0-62.0) fl RDW Coeff of Arelis 13 (11.0-15.0) % Plt Count 164 (150-400) K/uL MPV 8.90 (7.40-12.00) fL Neut % (Auto) 86.4 H (48.0-80.0) % Lymph % (Auto) 4.8 L (16.0-40.0) % [place] % (Auto) 8.6 (0.0-15.0) % Eos % (Auto) 0.0 (0.0-7.0) % Baso % (Auto) 0.2 (0.0-1.5) % Neut # (Auto) 9.6 H (1.4-5.7) K/uL Lymph # (Auto) 0.5 L (0.6-2.4) K/uL [place] # (Auto) 1.0 H (0.0-0.8) K/uL Eos # (Auto) 0.0 (0.0-0.7) K/uL Baso # (Auto) 0.0 (0.0-0.1) K/uL Nucleated RBC % 0.0 /100WBC Nucleated RBCs # 0 K/uL Sodium 137 (136-145) mmol/L Potassium 3.6 (3.5-5.1) mmol/L Chloride 104 (98-107) mmol/L Carbon Dioxide 26.1 (21.0-32.0) mmol/L BUN 11 (7.0-18.0) mg/dL Creatinine 1.0 (0.6-1.0) mg/dL Est Cr Clr Drug Dosing 56.18 mL/min Estimated GFR (MDRD) 58.0 ml/min Glucose 123 H (74-106) mg/dL Calcium 8.4 L (8.5-10.1) mg/dL Total Bilirubin 1.5 H (0.2-1.0) mg/dL AST 37 (15-37) IU/L ALT 30 (14-63) IU/L Alkaline Phosphatase 178 H (46-116) U/L Total Protein 6.8 (6.4-8.2) g/dL Albumin 3.1 L (3.4-5.0) g/dL Globulin 3.7 (2.6-4.0) g/dL Albumin/Globulin Ratio 0.8 L (0.9-1.6) Urine Color YELLOW Urine Appearance SLT CLOUDY Urine pH 6.0 (5.0-8.0) Ur Specific [place] 1.010 (1.001-1.035) Urine Protein TRACE H (NEGATIVE) mg/dL Urine Glucose (UA) NEGATIVE (NEGATIVE) mg/dL Urine Ketones NEGATIVE (NEGATIVE) mg/dL Urine Occult Blood SMALL H (NEGATIVE) Urine Nitrite NEGATIVE (NEGATIVE) Urine Bilirubin NEGATIVE (NEGATIVE) Urine Urobilinogen 0.2 (<2.0) EU/dL Ur Leukocyte Esterase LARGE H (NEGATIVE) Urine RBC 1-3 (0-2/HPF) Urine WBC 50-60 (0-5/HPF) Ur Epithelial Cells OCCASIONAL (NONE-FEW) Urine Bacteria FEW (NEGATIVE) Meds: Medications Generic Name Dose Route Start Last Admin Trade Name Babar PRN Reason Stop Dose Admin Cephalexin 500 mg 11/18/19 09:02 Keflex PO 11/18/19 09:03 ONETIME ONE Departure - Departure Time of Disposition: 09:05 Disposition: Home, Self-Care 01 Clinical Impression: UTI (urinary tract infection) Qualifiers: Urinary tract infection type: acute cystitis Hematuria presence: without hematuria Qualified Code(s): N30.00 - Acute cystitis without hematuria - Discharge Information Instructions: Urinary Tract Infection, Adult, [id number] Referrals: Kia Walls [Ordering Only Provider] - Cali Patel MD [Primary Care Provider] - Forms: ED Department Discharge Additional Instructions: Is to take her medication as prescribed for 7 days. Patient is a part follow-up with primary care physician if no improvement III. If patient has fever chills nausea or severe vomiting patient to return to emergency room Sepsis Event Note - Evaluation Sepsis Screening Result: No Definite Risk - Focused Exam Vital Signs: Vital Signs Temp Pulse Resp BP Pulse Ox 11/18/19 09:01 98 16 118/60 96 11/18/19 08:29 100 16 96 11/18/19 07:43 98.0 F 111 H 16 121/76 94 L Date Exam was Performed: 11/18/19 Time Exam was Performed: 09:03 - My Orders Last 24 Hours: My Active Orders 11/18/19 07:40 CULTURE URINE [RM] Stat 11/18/19 09:02 cephALEXin [Keflex] 500 mg PO ONETIME ONE - Assessment/Plan Last 24 Hours: My Active Orders 11/18/19 07:40 CULTURE URINE [RM] Stat 11/18/19 09:02 cephALEXin [Keflex] 500 mg PO ONETIME ONE
[2019-11-18 08:52] LABS: CARBON DIOXIDE,CO2 26.1 mmol/L (21.0-32.0); POTASSIUM,K 3.6 mmol/L (3.5-5.1)
[2019-11-18 09:02] VITALS: BP 118/60
[2019-11-18] MEDS ORDERED: Cephalexin 500 MG Cap PO ONE (09:02)
[2019-11-18 09:08] VITALS: PULSE 101
== END 2019-11-18 09:15 | disposition home or self-care (01) ==
LOC: MW.ED 07:33
DX: N30.00 Acute cystitis without hematuria (principal); I10 Essential (primary) hypertension; Z90.710 Acquired absence of both cervix and uterus; Z79.899 Other long term (current) drug therapy; Z93.1 Gastrostomy status
CPT/HCPCS: 36415; 80053; 81001; 85025; 87086; 87088; 87186; 99283; A9270; 99282

== ENCOUNTER 2020-08-11 09:56 | Emergency (ER) | payer BC ==
[2020-08-11] MEDS ORDERED: LORazepam 2 MG/ML SDV IVPUSH ONE ×2 (10:08→10:53)
[2020-08-11] MEDS ORDERED: Sodium Chloride 0.9% 1,000 ML IV ONE (10:08)
--- NOTE | 2020-08-11 10:24 | PCM.SN.2 ---
- Free Text/Narrative Note: 90 bpm, NSR, normal QRS interval, no STEMI. EKG and rhythm strip interpreted by me at 1017
--- NOTE | 2020-08-11 10:31 | EDM.PDOC ---
ED HPI GENERAL MEDICAL PROBLEM - General Chief Complaint: General Stated Complaint: POPSSIBLE SIEZING Time Seen by Provider: 08/11/20 10:03 Source of Information: Reports: Patient History Limitations: Reports: No Limitations - History of Present Illness INITIAL COMMENTS - FREE TEXT/NARRATIVE: HISTORY AND PHYSICAL: History of present illness: Patient is a 54-year-old female who presents to the emergency room with complaints of "full body cramping". She reports over the past few days she has had nausea, vomiting and decreased appetite. This morning she had cramping in her hands but was able to make it to work. Shortly after arrival she states her hands, feet and full body started to "cramp up", she started hyperventilating/increased anxiety and her employer had to drive her to the emergency room. Patient denies having any recent injury, trauma or falls. She has not had any loss of consciousness or seizure-like activity, no history of seizures. She states she typically does drink 2-3 alcoholic beverages per night, did not have any alcohol last evening. Past medical history of hypertension and gastric bypass. Patient denies any fever, chills, headache, change in vision, syncope or near syncope. Denies any chest pain, back pain, shortness of breath or cough. Denies any abdominal pain, diarrhea, constipation or dysuria. Has not noted any blood in urine or stool. Patient has been eating and drinking appropriately. Review of systems: As per history of present illness and below otherwise all systems reviewed and negative. Past medical history: As per history of present illness and as reviewed below otherwise noncontributory. Surgical history: As per history of present illness and as reviewed below otherwise noncontributory. Social history: See social history for further information Family history: As per history of present illness and as reviewed below otherwise noncontributory. Physical exam: General: Well developed and well nourished 54 year old female. Alert and orientated x 3. Answering questions appropriately. Nontoxic in appearance and in no acute distress. Vital signs are stable and have been reviewed by me. Nursing notes were reviewed. HEENT: Atraumatic, normocephalic, pupils equal and reactive bilaterally, negative for conjunctival pallor or scleral icterus, mucous membranes dry/tacky, TMs normal bilaterally, throat clear, neck supple, nontender, trachea midline. No drooling or trismus noted. No meningeal signs. No hot potato voice noted. Lungs: Clear to auscultation bilaterally. No wheezes, rales, or rhonchi. Chest nontender. Normal work of breathing, no accessory muscles used. Heart: S1S2, regular rate and rhythm without overt murmur, gallops, or rubs. No JVD. No peripheral edema Abdomen: Soft, nondistended, nontender. Normoactive bowel sounds. Negative for masses or costovertebral tenderness. Skin: Intact, warm, dry. No lesions or rashes noted. Hematologic: No petechiae or purpra. Mucosa appropriate color and normal nail bed color and refill. C-spine/Back: No pinpoint vertebral tenderness upon palpation. No crepitus, step-offs or obvious deformities. Patient is ambulatory into the emergency room without difficulty or deficit. Denies any numbness, tingling or saddle paresthesia. No concerns of serious infection, fracture or cord compression, or cauda equina syndrome. Deep tendon reflexes brisk bilaterally. Extremities: Atraumatic, moves all extremities per self without difficulty or deficits, carpopedal spasm to bilateral hands, negative for cords or calf pain. Neurovascular unremarkable. Neuro: Awake, alert, oriented. Cranial nerves II through XII unremarkable. Cerebellum unremarkable. Motor and sensory unremarkable throughout. Exam nonfocal. Psychiatric: Mood and affect are appropriate. Normal thought process. Answering questions appropriately. Notes: *This patient was seen and evaluated during the 2019 SARS-CoV-2 novel coronavirus pandemic period. Community viral transmission is ongoing at time of this encounter and the emergency department is operating under pandemic response procedures. During my physical exam the patient is alert, oriented and answering questions appropriately and is able to move all her extremities, follow commands appropriately. Agreeable to lab work, IV fluids and some Ativan to help with her symptoms. Chest x-ray is unremarkable. Lab work is unremarkable with the exception of a slightly low magnesium. Chronically elevated LFT's and Alk Phos. she has no abdominal tenderness after patient received IV fluids and 0.5 of Ativan she is now able to open and close her hands freely and states she does feel improved. States "I feel back to normal". Encouraged her to follow-up with primary care or GI specialist for the alk phos/LFTs. I have talked with the patient about today's findings, in addition to providing specific details for plan of care. Reassessment at the time of disposition demonstrates that the patient is in no acute distress. The patient is stable for discharge, counseling was provided and we discussed in great detail signs and symptoms that would prompt them to return to the Emergency Department. Medication, follow up and supportive care measures were reviewed and discussed. Voices understanding and is agreeable to plan of care. Denies any further questions or concerns at this time. Diagnostics: CBC, CMP, UA, lipase, troponin, EKG, chest x-ray Therapeutics: IV fluid, Ativan Prescription: Zofran Impression: Carpopedal Spasm Dehydration Hypomagnesium Plan: 1. Increase your oral fluids. Small frequent meals throughout the day. 2. You can alternate Tylenol and ibuprofen as needed for pain and fever management. 3. We encourage you to follow up with your primary care provider and/or recommended specialist in the next few days for re-evaluation and further care/management. 4. If your symptoms should worsen, new symptoms develop or any of the signs and symptoms we discussed should arise please return to the emergency room or call 911 (if needed). Definitive disposition and diagnosis as appropriate pending reevaluation and review of above. Entire Pain Score (Numeric/FACES): 4 - Related Data Allergies Allergy/AdvReac Type Severity Reaction Status Date / Time No Known Allergies Allergy Verified 08/11/20 10:02 Home Meds: Home Meds amLODIPine [Norvasc] 5 mg PO DAILY 02/15/17 [History] cloNIDine HCL [Catapres] 0.1 mg PO BID 02/15/17 [History] Losartan Potassium 100 mg PO DAILY 07/22/19 [History] Magnesium Oxide [Magnesium] 400 mg PO BID 5 Days #10 tablet 08/11/20 [Rx] Ondansetron [Zofran ODT] 4 mg PO Q6H PRN #8 tab.dis 08/11/20 [Rx] Past Medical History HEENT History: Reports: None Cardiovascular History: Reports: Hypertension Respiratory History: Reports: None Gastrointestinal History: Reports: None Genitourinary History: Reports: None [employer] History: Reports: None Musculoskeletal History: Reports: None Neurological History: Reports: None Psychiatric History: Reports: None Endocrine/Metabolic History: Reports: None Hematologic History: Reports: Blood Transfusion(s) Immunologic History: Reports: None Oncologic (Cancer) History: Reports: None Dermatologic History: Reports: None - Infectious Disease History Infectious Disease History: Reports: Chicken Pox - Past Surgical History Head Surgeries/Procedures: Reports: None HEENT Surgical History: Reports: None Cardiovascular Surgical History: Reports: None Respiratory Surgical History: Reports: None GI Surgical History: Reports: Bariatric Procedure, Hernia Repair/Other Other GI Surgeries/Procedures: 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 Female Surgical History: Reports: Hysterectomy Endocrine Surgical History: Reports: None Neurological Surgical History: Reports: None Musculoskeletal Surgical History: Reports: None Oncologic Surgical History: Reports: None Social & Family History - Family History Family Medical History: No Pertinent Family History - Caffeine Use Caffeine Use: Reports: Coffee - Recreational Drug Use Recreational Drug Use: No ED ROS GENERAL - Review of Systems Review Of Systems: Comprehensive ROS is negative, except as noted in HPI. ED EXAM, GENERAL - Physical Exam Exam: See Below (See dictation) Course - Vital Signs Last Recorded V/S: Last Vital Signs Temp 98.7 F 08/11/20 10:03 Pulse 80 08/11/20 11:02 Resp 17 08/11/20 10:13 BP 124/78 08/11/20 11:02 Pulse Ox 98 08/11/20 11:02 - Orders/Labs/Meds Orders: Active Orders 24 hr Category Date Time Status EKG Documentation Completion [RC] STAT Care 08/11/20 10:08 Active Labs: Laboratory Tests 08/11/20 08/11/20 08/11/20 Range/Units 10:10 10:10 12:25 WBC 5.64 (4.0-11.0) K/uL RBC 4.59 (4.30-5.90) M/uL Hgb 14.9 (12.0-16.0) g/dL Hct 43.9 (36.0-46.0) % MCV 95.6 (80.0-98.0) fL MCH 32.5 H (27.0-32.0) pg MCHC 33.9 (31.0-37.0) g/dL RDW Std Deviation 44.9 (28.0-62.0) fl RDW Coeff of Arelis 13 (11.0-15.0) % Plt Count 206 (150-400) K/uL MPV 9.40 (7.40-12.00) fL Neut % (Auto) 64.4 (48.0-80.0) % Lymph % (Auto) 21.1 (16.0-40.0) % [place] % (Auto) 14.0 (0.0-15.0) % Eos % (Auto) 0.0 (0.0-7.0) % Baso % (Auto) 0.5 (0.0-1.5) % Neut # (Auto) 3.6 (1.4-5.7) K/uL Lymph # (Auto) 1.2 (0.6-2.4) K/uL [place] # (Auto) 0.8 (0.0-0.8) K/uL Eos # (Auto) 0.0 (0.0-0.7) K/uL Baso # (Auto) 0.0 (0.0-0.1) K/uL Nucleated RBC % 0.0 /100WBC Nucleated RBCs # 0 K/uL Sodium 141 (136-145) mmol/L Potassium 4.2 (3.5-5.1) mmol/L Chloride 104 (98-107) mmol/L Carbon Dioxide 20.5 L (21.0-32.0) mmol/L BUN 12 (7.0-18.0) mg/dL Creatinine 1.0 (0.6-1.0) mg/dL Est Cr Clr Drug Dosing 53.82 mL/min Estimated GFR (MDRD) 58.0 ml/min Glucose 106 (74-106) mg/dL Calcium 9.1 (8.5-10.1) mg/dL Magnesium 1.6 L (1.8-2.4) mg/dL Total Bilirubin 1.1 H (0.2-1.0) mg/dL AST 57 H (15-37) IU/L ALT 54 (14-63) IU/L Alkaline Phosphatase 209 H (46-116) U/L Troponin I < 0.050 (0.000-0.056) ng/mL Total Protein 7.3 (6.4-8.2) g/dL Albumin 3.5 (3.4-5.0) g/dL Globulin 3.8 (2.6-4.0) g/dL Albumin/Globulin Ratio 0.9 (0.9-1.6) Lipase 118 (73-393) U/L Urine Color YELLOW Urine Appearance CLEAR Urine pH 7.5 (5.0-8.0) Ur Specific [place] 1.015 (1.001-1.035) Urine Protein NEGATIVE (NEGATIVE) mg/dL Urine Glucose (UA) NEGATIVE (NEGATIVE) mg/dL Urine Ketones NEGATIVE (NEGATIVE) mg/dL Urine Occult Blood NEGATIVE (NEGATIVE) Urine Nitrite NEGATIVE (NEGATIVE) Urine Bilirubin NEGATIVE (NEGATIVE) Urine Urobilinogen 0.2 (<2.0) EU/dL Ur Leukocyte Esterase NEGATIVE (NEGATIVE) Meds: Medications Discontinued Medications Generic Name Dose Route Start Last Admin Trade Name Freq PRN Reason Stop Dose Admin Sodium Chloride 1,000 mls @ 999 mls/hr 08/11/20 10:08 08/11/20 10:33 Normal Saline IV 08/11/20 11:08 999 mls/hr STAT ONE Administration Lorazepam 0.5 mg 08/11/20 10:08 08/11/20 10:33 Ativan IVPUSH 08/11/20 10:09 0.5 mg ONETIME ONE Administration Lorazepam 0.5 mg 08/11/20 10:53 08/11/20 12:50 Ativan IVPUSH 08/11/20 10:54 Not Given ONETIME ONE Magnesium Oxide 400 mg 08/11/20 12:41 08/11/20 12:54 Magnesium Oxide PO 08/11/20 12:42 400 mg ONETIME ONE Administration Departure - Departure Time of Disposition: 12:54 Disposition: Home, Self-Care 01 Clinical Impression: Hypomagnesemia, Dehydration, Carpopedal spasm - Discharge Information Prescriptions: Magnesium Oxide [Magnesium] 400 mg PO BID 5 Days #10 tablet Ondansetron [Zofran ODT] 4 mg PO Q6H PRN #8 tab.dis PRN Reason: Nausea Referrals: PCP,None [Primary Care Provider] - Forms: ED Department Discharge Additional Instructions: The following information is given to patients seen in the emergency department who are being discharged to home. This information is to outline your options for follow-up care. We provide all patients seen in our emergency department wi th a follow-up referral. The need for follow-up, as well as the timing and circumstances, are variable depending upon the specifics of your emergency department visit. If you don't have a primary care physician on staff, we will provide you with a referral. We always advise you to contact your personal physician following an emergency department visit to inform them of the circumstance of the visit and for follow-up with them and/or the need for any referrals to a consulting specialist. The emergency department will also refer you to a specialist when appropriate. This referral assures that you have the opportunity for follow-up care with a specialist. All of these measure are taken in an effort to provide you with optimal care, which includes your follow-up. Under all circumstances we always encourage you to contact your private physician who remains a resource for coordinating your care. When calling for follow-up care, please make the office aware that this follow-up is from your recent emergency room visit. If for any reason you are refused follow-up, please contact the [facility] Emergency Department at and asked to speak to the emergency department charge nurse. [facility] [address] [place] [id number] [address] Thank you for choosing the [facility] emergency department in [facility] for your medical needs today. It was a pleasure caring for you. Today you were seen in the emergency department for carpopedal spasms. 1. Increase your oral fluids. Small frequent meals throughout the day. 2. You can alternate Tylenol and ibuprofen as needed for pain and fever management. 3. We encourage you to follow up with your primary care provider and/or recommended specialist in the next few days for re-evaluation and further care/management. 4. If your symptoms should worsen, new symptoms develop or any of the signs and symptoms we discussed should arise please return to the emergency room or call 911 (if needed). Sepsis Event Note (ED) - Evaluation Sepsis Screening Result: No Definite Risk - Focused Exam Vital Signs: Vital Signs Temp Pulse Resp BP Pulse Ox 08/11/20 11:02 80 124/78 98 08/11/20 10:32 72 131/72 99 08/11/20 10:13 86 17 139/68 98 08/11/20 10:03 98.7 F 93 18 98 - My Orders Last 24 Hours: My Active Orders 08/11/20 10:08 EKG Documentation Completion [RC] STAT - Assessment/Plan Last 24 Hours: My Active Orders 08/11/20 10:08 EKG Documentation Completion [RC] STAT
--- NOTE | 2020-08-11 10:41 | CR ---
INDICATION: Dyspnea COMPARISON: 07/22/2019 TECHNIQUE: Single view AP upright chest radiograph FINDINGS: TUBES AND LINES: None. HEART AND MEDIASTINUM: The heart size is normal. The mediastinal contour appears normal for patient age. LUNGS AND PLEURAL SPACES: The lungs appear normal.The pleural spaces are unremarkable. OSSEOUS STRUCTURES: Age-appropriate appearance. No acute focal finding. IMPRESSION: No evidence of active pulmonary disease. Dictated by Izaiah Palencia MD @ Aug 11 2020 10:38AM Signed by Dr. Izaiah Palencia @ Aug 11 2020 10:40AM
[2020-08-11 10:51] LABS: BLOOD UREA NITROGEN,BUN 12 mg/dL (7.0-18.0); CARBON DIOXIDE,CO2 20.5 mmol/L (21.0-32.0); CHLORIDE,CL 104 mmol/L (98-107); GLUCOSE RANDOM 106 mg/dL (74-106); LIPASE 118 U/L (73-393); POTASSIUM,K 4.2 mmol/L (3.5-5.1); SODIUM,NA 141 mmol/L (136-145)
[2020-08-11] MEDS ORDERED: Magnesium Oxide 400 MG Tab PO ONE (12:41)
[2020-08-11 13:18] VITALS: BP 122/84; PULSE 93
== END 2020-08-11 13:19 | disposition home or self-care (01) ==
LOC: MW.ED 09:56
DX: E87.6 Hypokalemia (principal); E83.42 Hypomagnesemia; R29.0 Tetany; I10 Essential (primary) hypertension; Z79.899 Other long term (current) drug therapy
CPT/HCPCS: 36415; 71045; 80053; 81003; 83690; 83735; 84484; 85025; 93005; 96374; 99284; A9270; J2060; J7030; 93010

== ENCOUNTER 2022-01-24 23:48 | Emergency (ER) | payer BC, MEDICAID ==
[2022-01-25 00:03] VITALS: BP 149/76; PULSE 65
== END 2022-01-25 00:07 | disposition left against medical advice (07) ==
LOC: MW.ED 23:48
DX: Z53.21 Procedure and treatment not carried out due to patient leaving prior to being seen by health care provider (principal)

== ENCOUNTER 2022-06-27 19:34 | Emergency (ER) | payer BC ==
[2022-06-27] MEDS ORDERED: Sodium Chloride 0.9% 1,000 ML IV ONE (19:35)
[2022-06-27] MEDS ORDERED: Sodium Chloride 0.9% 2.5 ML Syringe FLUSH PRN (19:35)
[2022-06-27] MEDS ORDERED: Sodium Chloride 0.9% 10 ML Syringe FLUSH PRN (19:35)
[2022-06-27 21:26] VITALS: BP 148/64
[2022-06-27] MEDS ORDERED: Ondansetron 4 MG/2 ML SDV IVPUSH ONE (21:44)
[2022-06-27] MEDS ORDERED: HYDROmorphone 1 MG/ML Syringe IVPUSH ONE (21:44)
[2022-06-27 22:20] LABS: CARBON DIOXIDE,CO2 22.6 mmol/L (21.0-32.0); POTASSIUM,K 3.9 mmol/L (3.5-5.1)
[2022-06-28 02:25] VITALS: PULSE 62
== END 2022-06-28 01:40 | disposition home or self-care (01) ==
LOC: MW.ED 19:34
DX: K75.9 Inflammatory liver disease, unspecified (principal); R74.01 Elevation of levels of liver transaminase levels
CPT/HCPCS: 36415; 74176; 76705; 80053; 80074; 80143; 83690; 85025; 85610; 96361; 96374; 96375; 99284; J1170; J2405; J3490; J7030

== ENCOUNTER 2024-04-29 03:00 | Emergency (ER) | payer BC ==
[2024-04-29 03:19] LABS: BASOPHILS ABSOLUTE AUTO 0.04 K/uL (0.00-0.20); BASOPHILS PERCENT AUTO 0.5 % (0.0-1.0); EOSINOPHILS ABSOLUTE AUTO 0.08 K/uL (0.00-0.45); HEMATOCRIT 38.6 % (37.0-47.0); HEMOGLOBIN 12.8 g/dL (12.0-16.0); IMMATURE GRAN ABSOLUTE AUTO 0.01 K/uL (0.00-0.05); IMMATURE GRAN PERCENT AUTO 0.1 % (0.0-0.4); LYMPHOCYTES ABSOLUTE AUTO 1.32 K/uL (1.00-4.80); LYMPHOCYTES PERCENT AUTO 16.5 % (24.0-44.0); MEAN CORPUSCULAR HEMOGLOBIN 27.6 pg (28.0-32.0); MEAN CORPUSCULAR HGB CONC 33.2 g/dL (32.0-36.0); MEAN CORPUSCULAR VOLUME 83.2 fL (83.0-99.0); MONOCYTES ABSOLUTE AUTO 0.67 K/uL (0.00-0.80); MONOCYTES PERCENT AUTO 8.4 % (0.0-8.0); NEUTROPHILS ABSOLUTE AUTO 5.88 K/uL (1.80-7.70); NEUTROPHILS PERCENT AUTO 73.5 % (41.0-71.0); PLATELET COUNT,PLT 270 K/uL (150-400); RED BLOOD CELL COUNT 4.64 M/uL (4.10-5.30)
[2024-04-29] MEDS: Ketorolac 30 MG/ML SDV IVPUSH ONE (03:22)
[2024-04-29] MEDS: Ondansetron 4 MG/2 ML SDV IVPUSH ONE ×2 (03:22→11:31)
[2024-04-29 03:47] LABS: A/G RATIO 1.2 (0.9-1.6); ALANINE AMINOTRANSFERASE,ALT 436 IU/L (14-63); ALBUMIN 3.6 g/dL (3.4-5.0); ALKALINE PHOSPHATASE 244 U/L (46-116); ASPARTATE AMNIOTRANSFERASE,AST 1060 IU/L (15-37); BILIRUBIN TOTAL 1.7 mg/dL (0.2-1.0); BLOOD UREA NITROGEN,BUN 17 mg/dL (7.0-18.0); CALCIUM 9.2 mg/dL (8.5-10.1); CARBON DIOXIDE,CO2 28.4 mmol/L (21.0-32.0); CHLORIDE,CL 106 mmol/L (98-107); EST CRCL DRUG DOSING (CG) 49.09 mL/min; ESTIMATED GFR 66 mL/min (>60); GLUCOSE RANDOM 120 mg/dL (74-106); LIPASE 51 U/L (16-77); POTASSIUM,K 3.8 mmol/L (3.5-5.1); PROTEIN TOTAL,TP 6.7 g/dL (6.4-8.2); SODIUM,NA 140 mmol/L (136-145)
[2024-04-29] MEDS: Iopamidol 755 Mg/ML 100 ML Bottle IVPUSH ONE (04:08)
[2024-04-29] MEDS: Piperacillin/Tazobactam 4.5 GM in Sodium Chloride 0.9% 100 ML IV ONE (05:02)
[2024-04-29 10:31] LABS: BILIRUBIN TOTAL 1.1 mg/dL (0.2-1.0); CALCIUM 9.1 mg/dL (8.5-10.1); CARBON DIOXIDE,CO2 23.3 mmol/L (21.0-32.0); CREATININE 0.9 mg/dL (0.6-1.0); EST CRCL DRUG DOSING (CG) 54.55 mL/min; POTASSIUM,K 3.8 mmol/L (3.5-5.1); PROTEIN TOTAL,TP 5.9 g/dL (6.4-8.2)
[2024-04-29] MEDS: Morphine 2 MG/ML SYRINGE IVPUSH ONE (11:31)
[2024-04-29] MEDS ORDERED: Lactated Ringers 1,000 ML IV SCH (12:00)
[2024-04-29] MEDS: HYDROmorphone 0.5 MG/0.5 ML Syringe IVPUSH ONE (12:55)
[2024-04-29] MEDS: Sodium Chloride 0.9% 1,000 ML IV SCH (13:00)
[2024-04-29] MEDS: Piperacillin/Tazobactam 4.5 GM in Sodium Chloride 0.9% 100 ML IV SCH (13:03)
[2024-04-29 14:45] LABS: GLUCOSE,URINE NEGATIVE (NEGATIVE); KETONES,URINE 15 mg/dL (NEGATIVE); LEUKOCYTE ESTERASE,URINE NEGATIVE (NEGATIVE); NITRITE,URINE NEGATIVE (NEGATIVE); OCCULT BLOOD,URINE NEGATIVE (NEGATIVE); PH,URINE 5.5 (5.0-8.0); PROTEIN,URINE NEGATIVE (NEGATIVE)
[2024-04-29 14:48] LABS: APPEARANCE,URINE HAZY; BILIRUBIN,URINE SMALL (NEGATIVE); COLOR,URINE DARK YELLOW
[2024-04-29 15:50] VITALS: BP 132/81; PULSE 58
== END 2024-04-29 17:09 ==
LOC: MW.ED 03:00
DX: K83.09 Other cholangitis (principal); K80.50 Calculus of bile duct without cholangitis or cholecystitis without obstruction; K80.00 Calculus of gallbladder with acute cholecystitis without obstruction; Z98.84 Bariatric surgery status; I10 Essential (primary) hypertension; Z90.710 Acquired absence of both cervix and uterus
CPT/HCPCS: 36415; 71045; 74177; 76705; 80053; 81003; 83690; 84484; 85025; 93005; 96365; 96366; 96375; 96376; 99285; J1885; J2270; J2405; J2543; J3490; J7030; Q9967